=== PATIENT | male | born 1985 | race Caucasian/White ===

== ENCOUNTER 2020-09-26 19:48 | Emergency (ER) | payer OTHER, BC, SELFPAY ==
[2020-09-26] VITALS (9 sets, daily range): BP systolic 158–201; BP diastolic 95–138; PULSE 85–95; RESP 16–18; TEMP 36.3–36.6; O2SAT 95–98; BMI 35.2
--- NOTE | 2020-09-26 20:34 | XR_ITS ---
WS: [id number] XR chest 1V portable [id number] REASON FOR EXAM: epigastric pain FINDINGS: The heart and mediastinum are within normal limits. No active pulmonary parenchymal or pleural disease is seen. The bony thorax is intact. XR/XR chest 1V portable [id number] IMPRESSION: No acute chest abnormality.
--- NOTE | 2020-09-26 20:36 | ECG_ITS ---
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 Measurements Intervals [place] Rate: 94 P: 23 CA: 152 QRS: 15 QRSD: 104 T: 19 QT: 360 QTc: 451 Interpretive Statements SINUS RHYTHM NONSPECIFIC T-WAVE ABNORMALITY No previous ECG available for comparison Electronically Signed On 09-27-2020 16:40:15 DIRECTOR OF REAL ESTATE by Robert Worley M.D. [id number]
[2020-09-26] MEDS: lidocaine 2% viscous 15 ML, aluminum-mag hydrox-simethicon 30 ML, sucralfate oral liq 1 GM PO (20:46)
[2020-09-26] MEDS: enalaprilat 1.25 mg/mL Inj IVP (20:48)
--- NOTE | 2020-09-26 20:52 | CTR_ITS ---
PROCEDURE INFORMATION: Exam: CT Chest With Contrast; Diagnostic Exam date and time: 09/26/2020 8:55 PM Age: 34 years old Clinical indication: Abdominal pain; Sternal or substernal pain; Patient HX: C/O epigastric pain after difficulty swallowing a pill TECHNIQUE: Imaging protocol: Diagnostic computed tomography of the chest with intravenous contrast. Radiation optimization: All CT scans at this facility use at least one of these dose optimization techniques: automated exposure control; mA and/or kV adjustment per patient size (includes targeted exams where dose is matched to clinical indication); or iterative reconstruction. Contrast material: OMNI 300; Contrast volume: 95 ml; Contrast route: INTRAVENOUS (IV); COMPARISON: CR XR chest 1V portable [id number] 09/26/2020 8:44 PM RADIATION DOSE METRICS: Total DLP (mGy-cm): 2623.28 FINDINGS: Lungs: Unremarkable. No consolidation. No masses. There is linear atelectasis. Pleural space: Unremarkable. No pneumothorax. No pleural effusion. Heart: The heart is enlarged. Mediastinal space: The esophagus is unremarkable. Aorta: Unremarkable. No aortic aneurysm. Lymph nodes: Unremarkable. No enlarged lymph nodes. Bones/joints: Unremarkable. No acute fracture. Soft tissues: Unremarkable. Other findings: No foreign body. IMPRESSION: No acute abnormality in the chest. PROCEDURE INFORMATION: Exam: CT Abdomen And Pelvis With Contrast Exam date and time: 09/26/2020 8:55 PM Age: 34 years old Clinical indication: Abdominal pain; Sternal or substernal pain; Patient HX: C/O epigastric pain after difficulty swallowing a pill TECHNIQUE: Imaging protocol: Computed tomography of the abdomen and pelvis with intravenous contrast. Radiation optimization: All CT scans at this facility use at least one of these dose optimization techniques: automated exposure control; mA and/or kV adjustment per patient size (includes targeted exams where dose is matched to clinical indication); or iterative reconstruction. Contrast material: OMNI 300; Contrast volume: 95 ml; Contrast route: INTRAVENOUS (IV); COMPARISON: CR XR chest 1V portable [id number] 09/26/2020 8:44 PM RADIATION DOSE METRICS: Total DLP (mGy-cm): 2623.28 FINDINGS: Liver: There is a diffuse decrease in hepatic parenchymal density, consistent with fatty infiltration. The liver is otherwise intact. Gallbladder and bile ducts: Normal. No calcified stones. No ductal dilation. Pancreas: There is mild peripancreatic inflammatory stranding and fluid, consistent with mild acute pancreatitis. Spleen: Normal. No splenomegaly. Adrenal glands: Normal. No mass. Kidneys and ureters: There is no evidence of hydronephrosis. There is no evidence of renal calcifications. Stomach and bowel: There is no evidence of intestinal perforation or obstruction. There is no evidence of colitis/diverticulitis. No bowel thickening or inflammatory changes. No foreign body.There is moderately excessive colonic stool content. Appendix: A normal appendix is identified. Intraperitoneal space: Unremarkable. No free air. No significant fluid collection. Vasculature: Unremarkable.No abdominal aortic aneurysm. Lymph nodes: Unremarkable.No enlarged lymph nodes. Urinary bladder: There is nonspecific bladder wall thickening. This may be related to incomplete distention. Reproductive: Unremarkable as visualized. Bones/joints: Unremarkable. No acute fracture. Soft tissues: There is a fat-containing umbilical hernia. There is a nonobstructing left inguinal hernia. CT/CT chest abd pel w con* IMPRESSION: There is mild peripancreatic inflammatory stranding and fluid, consistent with mild acute pancreatitis. No pseudocyst. Radiation Dose CTDIVOL = (mGy): DLP = 2623.28~2623.28 (mGy-cm)
[2020-09-26 21:08] LABS: Basophils # 0.1 10^3/uL (0.0-0.1); Basophils % 0.4 %; Eosinophils # 0.1 10^3/uL (0.0-0.8); Eosinophils % 1.2 %; Hematocrit 43.6 % (42.0-52.0); Hemoglobin 15.5 g/dL (11.7-16.6); Lymphocytes # 2.6 10^3/uL (0.8-4.8); Lymphocytes % 21.8 %; Mean Corpuscular HGB Conc 35.6 g/dL (30.0-36.0); Mean Corpuscular Hemoglobin 32.7 pg (28.0-34.0); Mean Platelet Volume 10.9 fL (7.4-10.4); Monocytes # 0.8 10^3/uL (0.2-0.9); Monocytes % 6.4 %; Neutrophils # 8.25 10^3/uL (1.8-7.7); Neutrophils % 69.8 %; Nucleated Red Blood Cells % 0 %; Platelet Count 224 10^3/cmm (130-400); Red Blood Count 4.74 10^6/uL (4.1-5.3); Red Cell Distribution Width 12.3 % (12.1-15.1); White Blood Count 11.8 10^3/uL (4.0-10.0)
--- NOTE | 2020-09-26 21:10 | ED_ITS ---
HPI - Abdominal Pain General: Chief Complaint: Abdominal Pain Stated Complaint: epigastaric pain Time Seen by Provider: 09/26/20 20:10 History of Present Illness: HPI narrative: 34-year-old male presents with epigastric discomfort. He describes drinking a powder mix based drinks this morning, and immediately feeling like it did not go down right. He says that he had to force it down. Since that time he has epigastric discomfort and some discomfort in his mid back. He has not thrown up. No fever. No shortness of breath. No real cough. He is not had this problem before. He had used Tums and Mylanta with no relief. MD elicited complaint: abdominal pain Pertinent past history: none Onset (ago): hour(s) Pain Consistency: constant Location: Epigastric Severity: moderate Quality: aching Radiation: back Migration to: no migration Exacerbating factors: other (Deep breath) Relieving factors: nothing Associated Symptoms: Denies belching, bloating, change in bowel habits, change in stool character, chills, diarrhea, dyspepsia, dysuria, fever(s), hematemesis and vomiting Review of Systems Const: Denies: fever(s), chills or body aches Card: Denies: chest pain, palpitations or irregular heart rhythm Resp: Denies: dyspnea, productive cough, non-productive cough or wheezing GI: Denies: vomiting, hematemesis, diarrhea, bloating, belching, change in bowel habits or change in stool character : Denies: dysuria Physical Exam Const: GENERAL APPEARANCE: well developed ORIENTATION/CONSCIOUSNESS: Yes oriented to person, Yes oriented to place and Yes oriented to time HENMT: COMMON NORMALS: normocephalic, external ears normal and Normal external nose present HEAD & SCALP: normocephalic FACE & SINUS: normal facial exam NOSE: Normal external nose present and No nasal discharge present EXTERNAL EAR: Yes external ears normal Eye: COMMON NORMALS: Equal, round and reactive pupils present, EOMs intact bilaterally and conjunctivae normal EYELID: eyelids normal CONJUNCTIVA: Yes conjunctivae normal PUPIL: Yes Equal, round and reactive pupils present Neck/C-Spine: GENERAL: No tracheal deviation Chest: COMMONS NORMALS: normal inspection of the chest CHEST: No tenderness Resp: COMMON NORMALS: clear to auscultation bilaterally EFFORT & INSPECTION: No tachypneic, No respiratory distress, No retractions, No uses accessory muscles and No tracheal deviation AUSCULTATION: clear to auscultation bilaterally, no rhonchi, no wheezes and lung sounds not diminished Cardio: COMMON NORMALS: regular rate and regular rhythm RATE: regular rate RHYTHM: regular rhythm HEART SOUNDS: no murmurs PERIPHERAL PULSES: radial pulses present GI: INSPECTION: No abdominal distension AUSCULTATION: No Hyperactive bowel sounds present and No Hypoactive bowel sounds present PALPATION: Yes Tenderness to palpation present (GI) Details: RUQ, No Guarding due to palpation present (GI), No Rigid due to palpation and Yes Rebound tenderness present (+ bed shake) PERCUSSION: no dullness to percussion and no tympanic to percussion Neuro: SENSORIUM/ORIENTATION: Yes oriented to person, Yes oriented to place and Yes oriented to time Psych: COMMON NORMALS: mental status grossly normal Skin: COMMON NORMALS: no rashes or lesions noted GENERAL SKIN EXAM: no rashes or lesions noted Course Vital Signs: Vital signs: Vital Signs Temperature 97.9 F 09/26/20 23:26 Pulse Rate 95 09/26/20 23:26 Respiratory Rate 17 09/26/20 23:26 Blood Pressure 166/110 09/26/20 23:26 Pulse Oximetry 95 09/26/20 23:26 MDM - Abdominal Pain MDM Narrative: Medical decision making narrative: 34-year-old male with epigastric pain. GI cocktail very mildly and very transiently helped his symptoms. Pain improved now after IV Dilaudid. His white blood cell count is 11.8. Liver enzymes are normal. He has been quite hypertensive. His creatinine is 0.7. CT shows peripancreatic inflammation with no pseudocyst or abscess. The gallbladder is normal. Pancreatitis likely the source of his pain. Unknown cause, although he has increased his creatine intake over the last 2 to 3 weeks. I believe this is been known as a potential cause. He was given the option of admission. He would like to go home on oral liquids, [id number] pain medication, and stopping his supplements. He knows to return for worsening symptoms. Lab Data: Labs: Lab Results 09/26/20 09/26/20 09/26/20 Range/Units 20:51 20:51 20:51 WBC 11.8 H (4.0-10.0) 10^3/ uL RBC 4.74 (4.1-5.3) 10^6/u L Hgb 15.5 (11.7-16.6) g/dL Hct 43.6 (42.0-52.0) % MCV 92.0 (80-94) fL MCH 32.7 (28.0-34.0) pg MCHC 35.6 (30.0-36.0) g/dL RDW 12.3 (12.1-15.1) % Plt Count 224 (130-400) 10^3/c mm MPV 10.9 H (7.4-10.4) fL Neut % (Auto) 69.8 % Lymph % (Auto) 21.8 % Arthur % (Auto) 6.4 % Eos % (Auto) 1.2 % Baso % (Auto) 0.4 % Neut # (Auto) 8.25 H (1.8-7.7) 10^3/u L Lymph # (Auto) 2.6 (0.8-4.8) 10^3/u L Arthur # (Auto) 0.8 (0.2-0.9) 10^3/u L Eos # (Auto) 0.1 (0.0-0.8) 10^3/u L Baso # (Auto) 0.1 (0.0-0.1) 10^3/u L Nucleated RBC % (a uto) 0 % Nucleated RBCs # 0.0 /100WBC Sodium 134 L (136-145) mmol/L Potassium 3.8 (3.5-5.1) mmol/L Chloride 98 (98-107) mmol/L Carbon Dioxide 25 (22-29) mmol/L Anion Gap 14.8 (5-19) BUN 10 (6-20) mg/dL Creatinine 0.7 (0.7-1.2) mg/dL GFR Calculation 129.1 (90-130) mL/min Glucose 122 H (65-115) mg/dL Calculated Osmolal ity 278 L (285-295) mOsm/k g Calcium 9.0 (8.5-10.5) mg/dL Magnesium 2.2 (1.7-2.3) mg/dL Total Bilirubin 0.2 (0.15-1.2) mg/dL AST (0-40) U/L ALT < 5 (0-41) U/L Alkaline Phosphata se 75 (40-130) IU/L Troponin T Baselin e 11 (0-15) ng/L C-Reactive Protein 13.2 H (0.0-4.9) mg/L Total Protein 6.4 L (6.6-8.7) g/dL Albumin 4.5 (3.5-5.2) g/dL Globulin 1.9 (1.3-4.6) g/dL Lipase 88 H (13-60) U/L Urine Color (Yellow) Urine Appearance (CLEAR) Urine pH (5-7) Ur Specific Gravit y (1.005-1.030) Urine Protein (Negative) Urine Glucose (UA) (Normal) Urine Ketones (Negative) Urine Blood (Negative) Urine Nitrate (Negative) Urine Bilirubin (Negative) Prot Sulfosalicyli c Acd (Negative) Urine Urobilinogen (Negative) mg/dL Ur Leukocyte Laura ase (Negative) 09/26/20 Range/Units 20:51 WBC (4.0-10.0) 10^3/ uL RBC (4.1-5.3) 10^6/u L Hgb (11.7-16.6) g/dL Hct (42.0-52.0) % MCV (80-94) fL MCH (28.0-34.0) pg MCHC (30.0-36.0) g/dL RDW (12.1-15.1) % Plt Count (130-400) 10^3/c mm MPV (7.4-10.4) fL Neut % (Auto) % Lymph % (Auto) % Arthur % (Auto) % Eos % (Auto) % Baso % (Auto) % Neut # (Auto) (1.8-7.7) 10^3/u L Lymph # (Auto) (0.8-4.8) 10^3/u L Arthur # (Auto) (0.2-0.9) 10^3/u L Eos # (Auto) (0.0-0.8) 10^3/u L Baso # (Auto) (0.0-0.1) 10^3/u L Nucleated RBC % (a uto) % Nucleated RBCs # /100WBC Sodium (136-145) mmol/L Potassium (3.5-5.1) mmol/L Chloride (98-107) mmol/L Carbon Dioxide (22-29) mmol/L Anion Gap (5-19) BUN (6-20) mg/dL Creatinine (0.7-1.2) mg/dL GFR Calculation (90-130) mL/min Glucose (65-115) mg/dL Calculated Osmolal ity (285-295) mOsm/k g Calcium (8.5-10.5) mg/dL Magnesium (1.7-2.3) mg/dL Total Bilirubin (0.15-1.2) mg/dL AST (0-40) U/L ALT (0-41) U/L Alkaline Phosphata se (40-130) IU/L Troponin T Baselin e (0-15) ng/L C-Reactive Protein (0.0-4.9) mg/L Total Protein (6.6-8.7) g/dL Albumin (3.5-5.2) g/dL Globulin (1.3-4.6) g/dL Lipase (13-60) U/L Urine Color Yellow (Yellow) Urine Appearance Clear (CLEAR) Urine pH 8.0 H (5-7) Ur Specific Gravit y 1.010 (1.005-1.030) Urine Protein Neg (Negative) Urine Glucose (UA) Norm (Normal) Urine Ketones Negative (Negative) Urine Blood Neg (Negative) Urine Nitrate Negative (Negative) Urine Bilirubin Neg (Negative) Prot Sulfosalicyli c Acd Negative (Negative) Urine Urobilinogen Norm (Negative) mg/dL Ur Leukocyte Laura ase Negative (Negative) Discharge Plan Discharge Patient Disposition: Home Clinical Impression: Pancreatitis Qualifiers: Chronicity: acute Pancreatitis type: idiopathic Acute pancreatitis complication: no infection or necrosis Qualified Code(s): K85.00 - Idiopathic acute pancreatitis without necrosis or infection Hypertension Qualifiers: Hypertension type: essential hypertension Qualified Code(s): I10 - Essential (primary) hypertension Condition: Stable Prescriptions: New lisinopril 20 mg tablet 20 mg PO DAILY Qty: 30 RF: 0 Zofran 4 mg tablet 4 mg PO Q6H PRN (Reason: nausea and vomiting) Qty: 10 RF: 0 Discharge Orders: Discharge Order (Routine); Ordered 09/26/20 Ordered By: Iraj Jolley Discharge Diet: Advance as tolerated and Clear Liquid Discharge Activity: Increase activity as tolerated Patient Instructions: Pancreatitis (ED), Hypertension (ED) Activity Restrictions/Additional Instructions: Consider stopping your supplements for the time being. Medications as directed. Follow a liquid diet for at least 48 hours, or until symptoms of epigastric pain resolve. Return for fever greater than 100, vomiting liquids or medications, worsening pain despite treatment, development of chest pain or shortness of breath, other concerning symptoms. Coding Level of Care Code ED Trimming Press Operator for Chg Fwd Exam Comprehensive
[2020-09-26] MEDS: iohexol 300 mg/mL 100 mL Btl IV (21:11)
[2020-09-26 21:16] LABS: Add Urine Microscopic? NO
[2020-09-26 21:20] LABS: Albumin Level 4.5 g/dL (3.5-5.2); Alkaline Phosphatase 75 IU/L (40-130); Blood Urea Nitrogen 10 mg/dL (6-20); C Reactive Protein 13.2 mg/L (0.0-4.9); Carbon Dioxide 25 mmol/L (22-29); Chloride 98 mmol/L (98-107); Globulin 1.9 g/dL (1.3-4.6); Glomerular Filtration Rate 129.1 mL/min (90-130); Glucose 122 mg/dL (65-115); Lipase 88 U/L (13-60); Magnesium 2.2 mg/dL (1.7-2.3); Osmolality Calculated 278 mOsm/kg (285-295); Sodium 134 mmol/L (136-145); Total Bilirubin 0.2 mg/dL (0.15-1.2); Total Protein 6.4 g/dL (6.6-8.7)
[2020-09-26 21:24] LABS: Troponin(5th) Baseline 11 ng/L (0-15)
[2020-09-26 21:25] LABS: Anion Gap 14.8 (5-19); Potassium 3.8 mmol/L (3.5-5.1)
[2020-09-26 21:36] LABS: Alanine Aminotransferase < 5 U/L (0-41)
[2020-09-26 21:46] LABS: Bilirubin Urine Neg (Negative); Blood Urine Neg (Negative); Glucose Urine UA Norm (Normal); Ketones Urine Negative (Negative); Leukocyte Esterase Urine Negative (Negative); Nitrate Urine Negative (Negative); Protein Urine Neg (Negative); Sulfosalicylic Acid Urine Negative (Negative); Urine Appearance Clear (CLEAR); Urine Color Yellow (Yellow); Urobilinogen Urine Norm (Negative)
[2020-09-26] MEDS: ondansetron 2 mg/ML SDV 2 mL 4 MG IVP (22:29)
[2020-09-26] MEDS: HYDROmorphone 1 mg/mL INJ 1 mL IVP (22:33)
--- NOTE | 2020-09-26 22:44 | PC.NURSE ---
Physician cancelled rest of troponin series and EKGs
[2020-09-26] MEDS: amlodipine 10 mg Tablet PO (23:11)
== END 2020-09-26 23:26 | disposition home or self-care (01) ==
PROVIDERS: Emergency Provider Emergency Medicine
DX: K85.00 Idiopathic acute pancreatitis without necrosis or infection (principal); I10 Essential (primary) hypertension
CPT/HCPCS: 12345; 71045; 71260; 74177; 80053; 81003; 83690; 83735; 84484; 85025; 86140; 93005; 96374; 96375; 99283; 99284; J1170; J2405; J3490; Q9967

== ENCOUNTER 2020-10-18 00:37 | Inpatient (IN) | payer OTHER, BC, SELFPAY ==
[2020-10-18] VITALS (243 sets, daily range): BP systolic 100–174; BP diastolic 64–113; PULSE 87–117; RESP 12–36; TEMP 36.4–37.8; O2SAT 88–97; BMI 35.2
--- NOTE | 2020-10-18 01:03 | CTR_ITS ---
PROCEDURE INFORMATION: Exam: CT Abdomen And Pelvis With Contrast Exam date and time: 10/18/2020 1:12 AM Age: 34 years old Clinical indication: Nausea; Abdominal pain; Generalized; Additional info: Abd pain HX pancreatitis TECHNIQUE: Imaging protocol: Computed tomography of the abdomen and pelvis with intravenous contrast. Radiation optimization: All CT scans at this facility use at least one of these dose optimization techniques: automated exposure control; mA and/or kV adjustment per patient size (includes targeted exams where dose is matched to clinical indication); or iterative reconstruction. Contrast material: OMNI 300; Contrast volume: 95 ml; Contrast route: INTRAVENOUS (IV); COMPARISON: CT chest abd pel w con* 09/26/2020 8:59 PM RADIATION DOSE METRICS: Total DLP (mGy-cm): 1708.02 FINDINGS: Lungs: Suspect mild atelectasis in the lower lungs bilaterally, greater on the left. Pneumonitis not excluded. Please correlate clinically. No pleural fluid. Liver: There is fatty infiltration of the liver. Gallbladder and bile ducts: No visible gallstones or other definite gallbladder abnormality by CT. Ultrasound would be more sensitive for detecting gallstones, if clinically needed. Mild extra hepatic biliary tree dilation, with common duct measuring about 7 mm. No intrahepatic biliary dilation. No definite/visible common duct stone by CT. Significance uncertain, as the appearance is similar to the prior exam. Correlation with laboratory/bilirubin levels may be helpful to determine if there is any significant biliary obstruction. Pancreas: Moderate inflammatory changes around the pancreas, compatible with acute pancreatitis. Please correlate with clinical and laboratory evaluation. Small amount of peripancreatic and retroperitoneal fluid, mainly on the left. No definite pseudocyst. These inflammatory changes are more prominent than on the prior exam. No pancreatic duct dilation. The pancreas appears to enhance homogeneously. Spleen: Unremarkable. Adrenal glands: Unremarkable. Kidneys and ureters: No hydronephrosis of either kidney. No visible ureteral calculus. No perinephric fluid. The kidneys enhance homogeneously. Stomach and bowel: Possibility of slightly thickened mucosa/wall in the distal antrum of the stomach. This is a nonspecific appearance, could be transient on CT, and might be related to the adjacent pancreatic inflammation. This could also represent evidence for gastritis or peptic ulcer disease. Please correlate clinically. There are no CT findings to strongly suggest diverticulitis. Appendix: The appendix is visualized and appears normal. Intraperitoneal space: No free air, ascites, or bowel distention. Vasculature: No evidence for abdominal aortic aneurysm. Lymph nodes: No retroperitoneal adenopathy. Urinary bladder: There appears to be moderate diffuse urinary bladder wall thickening. While nonspecific, this could indicate evidence for cystitis. Please correlate clinically. Reproductive: Essentially unremarkable for age. Bones/joints: No significant acute finding. Soft tissues: Small left inguinal hernia, containing only fat, not significantly changed. CT/CT abdomen pelvis w con* [id number] IMPRESSION: 1. Findings compatible with acute pancreatitis, see above details. 2. Mild extrahepatic biliary tree dilation, no visible gallstones by CT, see above. 3. Possible thickened mucosa/wall in the distal stomach, see above discussion. 4. No free air or bowel distention. 5. Suspected urinary bladder wall thickening, possibly secondary to cystitis. 6. No hydronephrosis of either kidney. No visible ureteral calculus. No perinephric fluid. 7. Suspect mild atelectasis in the lower lungs bilaterally, greater on the left. Pneumonitis not excluded. 8. Other findings discussed above. Radiation Dose CTDIVOL = (mGy): DLP = 1708.02 (mGy-cm)
[2020-10-18] MEDS: lidocaine 2% viscous 15 ML, aluminum-mag hydrox-simethicon 30 ML, sucralfate oral liq 1 GM PO (01:06)
[2020-10-18] MEDS: sodium chloride 0.9% 1,000 ML 999 ML IV (01:06)
--- NOTE | 2020-10-18 01:07 | US_ITS ---
WS: [id number] ULTRASOUND ABDOMEN LIMITED CLINICAL INFORMATION: epigastric pain hx pancreatitis COMPARISON: None. FINDINGS: Liver Size: Enlarged Craniocaudal length: 18.8 cm. Echogenicity: Coarse with fatty infiltration Surface nodularity: None. Mass (size and location): None. Bile ducts Intrahepatic ducts: Normal. Common bile duct diameter: 0.8 cm. Gallbladder Polyps or sludge balls in the neck and fundus of the gallbladder Gallbladder wall thickening: None. Pericholecystic fluid: None. Sonographic Busch sign: Absent. Pancreas Normal as visualized. Right kidney: Normal. Hydronephrosis: None. Size: 12.3 cm x 6.4 cm x 6.1 cm. Abdominal aorta and IVC Visualized portions are normal. Ascites: None. US/US gall bladder [id number] IMPRESSION: 1. Mild hepatomegaly with diffuse infiltration. 2. Dilated common bile duct measuring 8.3 mm with polyps or sludge balls in th e neck and fundus of the gallbladder. No gallbladder wall thickening. 3. Gallbladder function can be further evaluated with HIDA scan.
[2020-10-18] MEDS: ondansetron 2 mg/ML SDV 2 mL 4 MG IVP (01:09)
[2020-10-18] MEDS: HYDROmorphone 1 mg/mL INJ 1 mL IVP ×2 (01:09→02:14)
[2020-10-18 01:10] LABS: Basophils # 0.1 10^3/uL (0.0-0.1); Basophils % 0.5 %; Eosinophils # 0.2 10^3/uL (0.0-0.8); Hematocrit 43.7 % (42.0-52.0); Hemoglobin 14.8 g/dL (11.7-16.6); Lymphocytes # 2.4 10^3/uL (0.8-4.8); Lymphocytes % 10.6 %; Mean Corpuscular HGB Conc 33.9 g/dL (30.0-36.0); Mean Corpuscular Hemoglobin 31.2 pg (28.0-34.0); Mean Platelet Volume 11.2 fL (7.4-10.4); Monocytes # 1.7 10^3/uL (0.2-0.9); Monocytes % 7.4 %; Neutrophils # 17.98 10^3/uL (1.8-7.7); Neutrophils % 80.1 %; Nucleated Red Blood Cells % 0 %; Platelet Count 225 10^3/cmm (130-400); Red Blood Count 4.75 10^6/uL (4.1-5.3); Red Cell Distribution Width 12.6 % (12.1-15.1); White Blood Count 22.5 10^3/uL (4.0-10.0)
[2020-10-18 01:17] LABS: INR 0.96 (0.8-1.2)
[2020-10-18 01:27] LABS: Alanine Aminotransferase 50 U/L (0-41); Albumin Level 4.1 g/dL (3.5-5.2); Alkaline Phosphatase 74 IU/L (40-130); Anion Gap 14.6 (5-19); Aspartate Amino Transferase 54 U/L (0-40); Blood Urea Nitrogen 8 mg/dL (6-20); C Reactive Protein 46.4 mg/L (0.0-4.9); Calcium 9.2 mg/dL (8.5-10.5); Carbon Dioxide 25 mmol/L (22-29); Chloride 100 mmol/L (98-107); Globulin 2.8 g/dL (1.3-4.6); Glomerular Filtration Rate 96.6 mL/min (90-130); Glucose 142 mg/dL (65-115); Osmolality Calculated 283 mOsm/kg (285-295); Potassium 3.6 mmol/L (3.5-5.1); Sodium 136 mmol/L (136-145); Total Bilirubin 0.7 mg/dL (0.15-1.2); Total Protein 6.9 g/dL (6.6-8.7)
[2020-10-18 01:28] LABS: Lactate (Lactic Acid level) 1.5 mmol/L (0.5-2.2)
[2020-10-18] MEDS: iohexol 300 mg/mL 100 mL Btl IV (01:38)
[2020-10-18 01:46] LABS: Add Urine Microscopic? NO
[2020-10-18 01:54] LABS: Bilirubin Urine Neg (Negative); Blood Urine Neg (Negative); Glucose Urine UA Norm (Normal); Ketones Urine Negative (Negative); Leukocyte Esterase Urine Negative (Negative); Nitrate Urine Negative (Negative); Protein Urine Neg (Negative); Urine Appearance Clear (CLEAR); Urine Color Yellow (Yellow); Urobilinogen Urine Norm (Negative); pH Urine 5 (5-7)
[2020-10-18] MEDS: ketorolac 30 mg/mL INJ IVP (02:18)
--- NOTE | 2020-10-18 03:04 | P.HP_ITS ---
Providers/Chief Complaint Chief Complaint: suspects pancreatitis History of Present Illness Fito Gardner is a 34 year old male who does not have significant past medical history came in with chief complaint of abdominal pain. Patient had an episode of pancreatitis 3 weeks ago for which she was seen in the ER and was discharged home, he presented today with worsening abdominal pain. Patient is stating that he is drinking alcohol in large quantity, he drinks beer, was not able to gabriele ntify but stated more than he is supposed to and admits that it is a problem for him, he denies waking up drowsy, sustaining any falls but he has some guilt about it. 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 At home he has not noticed any fever, nausea, vomiting his last bowel movement was today which was he did not notice any diarrhea. He is not on any medications other than lisinopril for his blood pressure. No family history of GI cancers. Admits to smoking 5 to 7 cigarettes a day. Diagnosis in the ER revealed normal hemodynamics, leukocytosis without signs of sepsis, normal BMP, lipase 7000, CT abdomen revealed pancreatitis without any necrotic changes, I have requested drug screen, alcohol level, triglyceride level, abdominal pain 12/15 at the time my evaluation he was comfortable in his bed and was contemplating whether to stay or go home. Review of Systems Const: Denies: fever(s), chills or body aches Eyes: Denies: change in vision ENMT: Denies: throat pain Card: Denies: chest pain Resp: Denies: dyspnea GI: Reports: abdominal pain; Denies: nausea, vomiting, diarrhea or constipation : Denies: flank pain Musc: Denies: neck pain Skin/Breast: Denies: lesions Neuro: Denies: headache(s) Psych: Denies: anxiety or depression Endo: Denies: polyuria Samm/Lymph: Denies: easy bruising All/Imm: Denies: urticaria Medications/Allergies Home Medications Medication Instructions Recorded Confirmed Last Taken Type lisinopril 20 mg PO DAILY #30 tab 09/26/20 Unknown Rx ondansetron HCl [Zofran] 4 mg PO Q6H PRN #10 tab 09/26/20 Unknown Rx Allergies Allergy/AdvReac Type Severity Reaction Status Date / Time No Known Allergies Allergy Verified 09/26/20 20:39 PFSH Acute PFSH: Medical History (Updated 10/18/20 @ 04:00 by Candelario Jeffries MD) Alcohol abuse Nicotine dependence Pancreatitis Surgical History (Updated 10/18/20 @ 04:00 by Candelario Jeffries MD) No pertinent past surgical history Family History (Updated 10/18/20 @ 04:00 by Candelario Jefrfies MD) Denies family history of CAD (coronary artery disease) Bleeding disorder Cancer Social History (Updated 10/18/20 @ 04:01 by Candelario Jeffries MD) Smoking and tobacco status: current every day smoker cigarettes [ Other cigarette details: Smokes 5-7 cigarettes per day ] Alcohol intake: current Alcohol type: beer Alcohol use comment: More than 4 drinks a day Substance/Drug Use: never Household members: spouse Housing: House Marital status: Current occupational status: employed Vitals/I&O/Wt Last Vital Signs Temp 98.1 F 10/18/20 00:42 Pulse 98 10/18/20 02:20 Resp 17 10/18/20 02:20 BP 137/89 10/18/20 02:20 Pulse Ox 93 10/18/20 02:20 10/17/20 10/17/20 10/18/20 14:59 22:59 06:59 Intake Total 1000 / 1000 Balance 1000 / 1000 Weight last 48 hrs Weight 111.13 kg Physical Exam Narrative: EXAM NARRATIVE: Young male sitting comfortably in his bed Appears well-hydrated no active distress Saturating well on room air S1-S2 no tachycardia heart. Abdomen soft distended bowel sound present mild tenderness midepigastric region and left upper quadrant No signs of peritonitis No signs of retroperitoneal hemorrhage Lower extremity no edema gangrene ulcer Multiple skin tattoos noted Appropriate mood and affect GCS 15 no neurological deficit EOMI, PERRLA Data : 10/18/20 00:55 10/18/20 00:55 A&P Assessment and plan (1) Pancreatitis: Recurrent pancreatitis secondary to alcohol abuse and active smoking Patient admits to drinking a lot of alcohol He admits that drinking is getting problematic for him and is willing to bring changes in his life, he seems concerned about his family and job Denying nausea, vomiting and willing to try clear liquid trial He has received Zosyn in the ER but I do not see any evidence of necrotic pancreas on CT abdomen I would hold off for now D5 half-normal saline fluid resuscitation Trend lipase level, we do have etiology for his recurrent pancreatitis I do not think MRCP is needed at this point, hold lisinopril Status: Acute Additional A&P Information Alcohol abuse: Add thiamine and folic acid Check alcohol level Would benefit from alcohol Anonymous program Nicotine dependence: Smoking 5 to 7 cigarettes a day, counseled on smoking c essation Full code Clear liquid diet DVT prophylaxis not needed as he is low risk Attestations Medical Necessity Statement*: Anticipating discharge in less than 48 hours continued overnight monitoring for worsening of his symptoms for pancreatitis secondary to alcohol abuse Time Spent in Patient Care: (>than 50% of time spent in counselling and/or direct pt care on unit) . 50mins Coding Level of Care Code Acute It Desktop Support Technician for Min [place] Diagnoses Pancreatitis K85.90
--- NOTE | 2020-10-18 03:17 | W.ED.ABDPA2 ---
HPI - Abdominal Pain General: Chief Complaint: Abdominal Pain Stated Complaint: suspects pancreatitis Time Seen by Provider: 10/18/20 01:00 History of Present Illness: HPI narrative: 34-year-old male. He was seen about 3 weeks ago for pancreatitis. His pancreatitis was mild at that point, with a lipase of 88, normal liver enzymes, and a CT showing only mild pancreatic inflammation. He was allowed home, and did well on a liquid diet and was symptom-free by 2 to 3 days following. He notes that yesterday he began to have symptoms again. They were much worse at this point. He had epigastric pain, nausea. When the pain became worse he came to the emergency department MD elicited complaint: abdominal pain Pertinent past history: other Onset (ago): hour(s) Pain Consistency: constant Location: Epigastric and LUQ Severity: severe Quality: stabbing Radiation: none Migration to: no migration Relieving factors: nothing Associated Symptoms: Reports dyspepsia and nausea; Denies coffee ground emesis, constipation, diarrhea, dysuria and fever(s) Review of Systems Const: Denies: fever(s) Eyes: Denies: change in vision ENMT: Denies: odynophagia, post nasal drip or sinus pain Card: Denies: chest pain, palpitations, irregular heart rhythm, edema, swelling of feet/ankles, dyspnea on exertion or orthopnea Resp: Denies: dyspnea, productive cough, non-productive cough or wheezing GI: Reports: nausea; Denies: coffee ground emesis, diarrhea or constipation : Denies: dysuria Musc: Reports: back pain; Denies: neck pain Skin/Breast: Denies: rash or erythema Neuro: Denies: headache(s), dizziness or vertigo Psych: Denies: anxiety PFSH ED PFSH: Medical History (Updated 10/18/20 @ 04:12 by Iraj Jolley DO) Alcohol abuse Nicotine dependence Pancreatitis Surgical History (Updated 10/18/20 @ 04:00 by Candelario Jeffries MD) No pertinent past surgical history Family History (Updated 10/18/20 @ 04:00 by Candleario Jeffries MD) Denies family history of CAD (coronary artery disease) Bleeding disorder Cancer Social History (Updated 10/18/20 @ 04:01 by Candelario Jeffries MD) Smoking and tobacco status: current every day smoker cigarettes [ Other cigarette details: Smokes 5-7 cigarettes per day ] Alcohol intake: current Alcohol type: beer Alcohol use comment: More than 4 drinks a day Substance/Drug Use: never Household members: spouse Housing: House Marital status: Current occupational status: employed Physical Exam Const: GENERAL APPEARANCE: in distress and ill appearing ORIENTATION/CONSCIOUSNESS: Yes oriented to person, Yes oriented to place and Yes oriented to time HENMT: COMMON NORMALS: normocephalic, external ears normal and Normal external nose present HEAD & SCALP: normocephalic FACE & SINUS: normal facial exam NOSE: Normal external nose present and No nasal discharge present EXTERNAL EAR: Yes external ears normal Eye: COMMON NORMALS: Equal, round and reactive pupils present, EOMs intact bilaterally and conjunctivae normal EYELID: eyelids normal CONJUNCTIVA: Yes conjunctivae normal PUPIL: Yes Equal, round and reactive pupils present Neck/C-Spine: GENERAL: No tracheal deviation Chest: COMMONS NORMALS: normal inspection of the chest CHEST: No tenderness Resp: COMMON NORMALS: clear to auscultation bilaterally EFFORT & INSPECTION: No tachypneic, No respiratory distress, No retractions, No uses accessory muscles and No tracheal deviation AUSCULTATION: clear to auscultation bilaterally, no rhonchi, no wheezes and lung sounds not diminished Cardio: COMMON NORMALS: regular rate and regular rhythm RATE: regular rate RHYTHM: regular rhythm HEART SOUNDS: no murmurs PERIPHERAL PULSES: radial pulses present GI: INSPECTION: No abdominal distension AUSCULTATION: No Hyperactive bowel sounds present and No Hypoactive bowel sounds present PALPATION: Yes Tenderness to palpation present (GI) (epigastric) Details: LUQ, Yes Guarding due to palpation present (GI) and No Rigid due to palpation PERCUSSION: no dullness to percussion and no tympanic to percussion Neuro: SENSORIUM/ORIENTATION: Yes oriented to person, Yes oriented to place and Yes oriented to time Psych: COMMON NORMALS: mental status grossly normal Skin: COMMON NORMALS: no rashes or lesions noted GENERAL SKIN EXAM: no rashes or lesions noted Course Consultations: Consultation #1: nunu Vital Signs: Vital signs: Vital Signs Temperature 98.1 F 10/18/20 00:42 Pulse Rate 106 H 10/18/20 04:04 Respiratory Rate 17 10/18/20 04:04 Blood Pressure 140/79 10/18/20 04:04 Pulse Oximetry 94 10/18/20 04:04 MDM - Abdominal Pain MDM Narrative: Medical decision making narrative: 34-year-old male with epigastric pain. White blood cell count 22.5. Lipase is 7000. His bilirubin is normal. He does admit to drinking alcohol. Gallbladder ultrasound reveals possible sludge, no stones, and borderline bile ducts. CT reveals significant Pancreatic inflammation without cyst or abscess formation. Also reveals borderline bile ducts. INR is 0.96. Discussed admission for antibiotics, fluids, and possible further imaging. Patient was initially adamant about going home, but then conceded. Discussed with hospitalist who agrees to admit the patient. Lab Data: Labs: Lab Results 10/18/20 10/18/20 10/18/20 Range/Units 00:55 00:55 00:55 WBC 22.5 H (4.0-10.0) 10^3/ uL RBC 4.75 (4.1-5.3) 10^6/u L Hgb 14.8 (11.7-16.6) g/dL Hct 43.7 (42.0-52.0) % MCV 92.0 (80-94) fL MCH 31.2 (28.0-34.0) pg MCHC 33.9 (30.0-36.0) g/dL RDW 12.6 (12.1-15.1) % Plt Count 225 (130-400) 10^3/c mm MPV 11.2 H (7.4-10.4) fL Neut % (Auto) 80.1 % Lymph % (Auto) 10.6 % [place] % (Auto) 7.4 % Eos % (Auto) 1.0 % Baso % (Auto) 0.5 % Neut # (Auto) 17.98 H (1.8-7.7) 10^3/u L Lymph # (Auto) 2.4 (0.8-4.8) 10^3/u L [place] # (Auto) 1.7 H (0.2-0.9) 10^3/u L Eos # (Auto) 0.2 (0.0-0.8) 10^3/u L Baso # (Auto) 0.1 (0.0-0.1) 10^3/u L Nucleated RBC % (a uto) 0 % Nucleated RBCs # 0.0 /100WBC PT 13.00 (12.1-14.9) SECO NDS INR 0.96 (0.8-1.2) Sodium 136 (136-145) mmol/L Potassium 3.6 (3.5-5.1) mmol/L Chloride 100 (98-107) mmol/L Carbon Dioxide 25 (22-29) mmol/L Anion Gap 14.6 (5-19) BUN 8 (6-20) mg/dL Creatinine 0.9 (0.7-1.2) mg/dL GFR Calculation 96.6 (90-130) mL/min Glucose 142 H (65-115) mg/dL Calculated Osmolal ity 283 L (285-295) mOsm/k g Lactate (0.5-2.2) mmol/L Calcium 9.2 (8.5-10.5) mg/dL Total Bilirubin 0.7 (0.15-1.2) mg/dL AST 54 H (0-40) U/L ALT 50 H (0-41) U/L Alkaline Phosphata se 74 (40-130) IU/L C-Reactive Protein 46.4 H (0.0-4.9) mg/L Total Protein 6.9 (6.6-8.7) g/dL Albumin 4.1 (3.5-5.2) g/dL Globulin 2.8 (1.3-4.6) g/dL Triglycerides (0-150) mg/dL Lipase 7147 H (13-60) U/L Urine Color (Yellow) Urine Appearance (CLEAR) Urine pH (5-7) Ur Specific Gravit y (1.005-1.030) Urine Protein (Negative) Urine Glucose (UA) (Normal) Urine Ketones (Negative) Urine Blood (Negative) Urine Nitrate (Negative) Urine Bilirubin (Negative) Urine Urobilinogen (Negative) mg/dL Ur Leukocyte Laura ase (Negative) Ethyl Alcohol (0-10) mg/dL 10/18/20 10/18/20 10/18/20 Range/Units 00:55 00:55 00:55 WBC (4.0-10.0) 10^3/ uL RBC (4.1-5.3) 10^6/u L Hgb (11.7-16.6) g/dL Hct (42.0-52.0) % MCV (80-94) fL MCH (28.0-34.0) pg MCHC (30.0-36.0) g/dL RDW (12.1-15.1) % Plt Count (130-400) 10^3/c mm MPV (7.4-10.4) fL Neut % (Auto) % Lymph % (Auto) % [place] % (Auto) % Eos % (Auto) % Baso % (Auto) % Neut # (Auto) (1.8-7.7) 10^3/u L Lymph # (Auto) (0.8-4.8) 10^3/u L [place] # (Auto) (0.2-0.9) 10^3/u L Eos # (Auto) (0.0-0.8) 10^3/u L Baso # (Auto) (0.0-0.1) 10^3/u L Nucleated RBC % (a uto) % Nucleated RBCs # /100WBC PT (12.1-14.9) SECO NDS INR (0.8-1.2) Sodium (136-145) mmol/L Potassium (3.5-5.1) mmol/L Chloride (98-107) mmol/L Carbon Dioxide (22-29) mmol/L Anion Gap (5-19) BUN (6-20) mg/dL Creatinine (0.7-1.2) mg/dL GFR Calculation (90-130) mL/min Glucose (65-115) mg/dL Calculated Osmolal ity (285-295) mOsm/k g Lactate 1.5 (0.5-2.2) mmol/L Calcium (8.5-10.5) mg/dL Total Bilirubin (0.15-1.2) mg/dL AST (0-40) U/L ALT (0-41) U/L Alkaline Phosphata se (40-130) IU/L C-Reactive Protein (0.0-4.9) mg/L Total Protein (6.6-8.7) g/dL Albumin (3.5-5.2) g/dL Globulin (1.3-4.6) g/dL Triglycerides 1331 H (0-150) mg/dL Lipase (13-60) U/L Urine Color (Yellow) Urine Appearance (CLEAR) Urine pH (5-7) Ur Specific Gravit y (1.005-1.030) Urine Protein (Negative) Urine Glucose (UA) (Normal) Urine Ketones (Negative) Urine Blood (Negative) Urine Nitrate (Negative) Urine Bilirubin (Negative) Urine Urobilinogen (Negative) mg/dL Ur Leukocyte Laura ase (Negative) Ethyl Alcohol < 10 (0-10) mg/dL 10/18/20 Range/Units 01:41 WBC (4.0-10.0) 10^3/ uL RBC (4.1-5.3) 10^6/u L Hgb (11.7-16.6) g/dL Hct (42.0-52.0) % MCV (80-94) fL MCH (28.0-34.0) pg MCHC (30.0-36.0) g/dL RDW (12.1-15.1) % Plt Count (130-400) 10^3/c mm MPV (7.4-10.4) fL Neut % (Auto) % Lymph % (Auto) % [place] % (Auto) % Eos % (Auto) % Baso % (Auto) % Neut # (Auto) (1.8-7.7) 10^3/u L Lymph # (Auto) (0.8-4.8) 10^3/u L [place] # (Auto) (0.2-0.9) 10^3/u L Eos # (Auto) (0.0-0.8) 10^3/u L Baso # (Auto) (0.0-0.1) 10^3/u L Nucleated RBC % (a uto) % Nucleated RBCs # /100WBC PT (12.1-14.9) SECO NDS INR (0.8-1.2) Sodium (136-145) mmol/L Potassium (3.5-5.1) mmol/L Chloride (98-107) mmol/L Carbon Dioxide (22-29) mmol/L Anion Gap (5-19) BUN (6-20) mg/dL Creatinine (0.7-1.2) mg/dL GFR Calculation (90-130) mL/min Glucose (65-115) mg/dL Calculated Osmolal ity (285-295) mOsm/k g Lactate (0.5-2.2) mmol/L Calcium (8.5-10.5) mg/dL Total Bilirubin (0.15-1.2) mg/dL AST (0-40) U/L ALT (0-41) U/L Alkaline Phosphata se (40-130) IU/L C-Reactive Protein (0.0-4.9) mg/L Total Protein (6.6-8.7) g/dL Albumin (3.5-5.2) g/dL Globulin (1.3-4.6) g/dL Triglycerides (0-150) mg/dL Lipase (13-60) U/L Urine Color Yellow (Yellow) Urine Appearance Clear (CLEAR) Urine pH 5 (5-7) Ur Specific Gravit y 1.020 (1.005-1.030) Urine Protein Neg (Negative) Urine Glucose (UA) Norm (Normal) Urine Ketones Negative (Negative) Urine Blood Neg (Negative) Urine Nitrate Negative (Negative) Urine Bilirubin Neg (Negative) Urine Urobilinogen Norm (Negative) mg/dL Ur Leukocyte Laura ase Negative (Negative) Ethyl Alcohol (0-10) mg/dL Discharge Plan Discharge Patient Disposition: Placed in Observation Admit Provider: Candelario Jeffries Clinical Impression: Pancreatitis Qualifiers: Chronicity: acute Pancreatitis type: unspecified pancreatitis type Acute pancreatitis complication: unspecified Qualified Code(s): K85.90 - Acute pancreatitis without necrosis or infection, unspecified Coding Level of Care Code ED Bacteriologist Industrial for [facility] Fwd Exam Comprehensive
[2020-10-18 03:19] LABS: Lipase 7147 U/L (13-60)
[2020-10-18 04:01] LABS: Triglycerides 1331 mg/dL (0-150)
[2020-10-18 04:09] LABS: Alcohol Level < 10 mg/dL (0-10)
[2020-10-18] MEDS: piperacillin-tazobactam 3.375 GM in sodium chloride 0.9% (plus) 50 ML IV (04:10)
[2020-10-18 04:18] LABS: LDL Cholesterol Direct 57 mg/dL (0-100)
[2020-10-18 05:13] LABS: Magnesium 2.1 mg/dL (1.7-2.3)
[2020-10-18 05:42] LABS: Glucose Point of Care 139 mg/dL (70-110)
[2020-10-18] MEDS: D5-NS 0.45% + KCL 20 mEq 20 MEQ/1,000 ML BAG 100 MEQ IV ×2 (05:47→15:10)
[2020-10-18] MEDS: insulin regular-human 250 UNIT in sodium chloride 0.9% 250 ML IV (06:23)
[2020-10-18 06:35] LABS: Glucose Point of Care 140 mg/dL (70-110)
[2020-10-18 07:20] LABS: Glucose Point of Care 125 mg/dL (70-110)
[2020-10-18] MEDS: folic acid 1 mg Tablet PO (07:54)
[2020-10-18 08:21] LABS: Amphetamines Screen Urine Negative (Negative); Barbiturates Screen Urine Negative (Negative); Benzodiazepines Screen Urine Negative (Negative); Cocaine Screen Urine Negative (Negative); Opiate Screen Urine Positive (Negative); PCP Screen Urine Negative (Negative); THC Screen Urine Negative (Negative)
--- NOTE | 2020-10-18 08:28 | PM.PN ---
Subjective Subjective: Interval history: Pain in the lower abdomen about a 3, sometimes a bit worse. He tried to eat some broth earlier. No vomiting. Denies other complaints. Requests for something for pain. Vitals/I&O/Wt Last Vital Signs Temp 97.6 F 10/18/20 04:55 Pulse 98 10/18/20 08:15 Resp 20 H 10/18/20 08:15 BP 129/88 10/18/20 08:15 Pulse Ox 92 10/18/20 08:15 10/17/20 10/18/20 10/18/20 22:59 06:59 14:59 Intake Total 1000 / 1000 120 / 120 Output Total 0 / 0 Balance 1000 / 1000 120 / 120 Weight last 48 hrs Weight 111.13 kg Physical Exam Const: COMMON NORMALS: no acute distress, patient oriented x3 and alert NUTRITIONAL APPEARANCE: overweight ORIENTATION/CONSCIOUSNESS: Yes awake HENMT: COMMON NORMALS: oropharynx normal Neck/C-Spine: COMMON NORMALS: no JVD Resp: COMMON NORMALS: normal respiratory effort and clear to auscultation bilaterally AUSCULTATION: clear to auscultation bilaterally Cardio: COMMON NORMALS: no JVD, regular rhythm, S1 normal heart sound present, S2 normal heart sound present and No murmurs present (Cardio) RHYTHM: regular rhythm HEART SOUNDS: S1 normal heart sound present and S2 normal heart sound present GI: COMMON NORMALS: Normal to inspection, nondistended, normoactive bowel sounds present and Soft to palpation PALPATION: Yes Soft to palpation and Yes Tenderness to palpation present (GI) (lower abdomen and epigastrium) Extremity: COMMON NORMALS: no joint enlargement and no pedal edema Neuro: COMMON NORMALS: patient oriented x3 and moves all extremities SENSORIUM/ORIENTATION: Yes alert Skin: COMMON NORMALS: no rashes or lesions noted GENERAL SKIN EXAM: no rashes or lesions noted Data : 10/18/20 00:55 10/18/20 00:55 A&P Assessment and plan (1) Pancreatitis: Acute pancreatitis secondary to EtOH and hypertriglyceridemia Continue insulin drip for hyper triglyceridemia. Monitor lipase and triglyceride levels. Pain, nausea symptomatic management. Status: Acute Qualifiers: Acute pancreatitis complication: unspecified Chronicity: acute Pancreatitis type: unspecified pancreatitis type Qualified Code(s): K85.90 - Acute pancreatitis without necrosis or infection, unspecified Additional A&P Information Alcohol abuse: Add thiamine and folic acid, monitor for withdrawal. Case management to provide options for help with cessation. Hypetrtriglyceridemia: would benefit from weight loss, increase in physical activity. Alcohol cessation. Fibrate. Nicotine dependence: Smoking 5 to 7 cigarettes a day, counseled on smoking cessation Atelectasis: IS Full code Clear liquid diet DVT prophylaxis not needed as he is low risk Attestations Medical Necessity Statement*: Continue admission for acute pancreatitis with hypertriglyceridemia. Coding Level of Care Code Acute Tongue Lining Stitcher for [facility] Diagnoses Pancreatitis K85.90 Acute pancreatitis complication: unspecified Chronicity: acute Pancreatitis type: unspecified pancreatitis type
[2020-10-18] MEDS: HYDROmorphone 1 mg/mL INJ 1 mL 2 MG IVP ×3 (08:38→17:18)
[2020-10-18 09:03] LABS: Glucose Point of Care 143 mg/dL (70-110)
--- NOTE | 2020-10-18 09:20 | PC.NURSE ---
Assessment Pt resting in bed this shift. Complaining of abdominal pain at 6/10. Sates it feels like tight pressure. PRN pain medication given per orders. Patient is resting with eyes closed. Will continue to monitor
--- NOTE | 2020-10-18 09:25 | PC.CHAP ---
Pastoral Care Encounter/Spiritual Assessment Type of Contact [] Declined pump operator byproducts visit [] Patient/Family/Request visit [] Outpatient visit [] Follow-up visit [] Physician referral [] Code/Alert [] Routine visit [] Staff referral [] Actively dying [] Patient sleeping [] Family support [] [] Out of room [] Palliative care [] [] Receiving care in room [] Pre-surgical visit [] Trauma [] Long length of stay [x] ICU visit [] Other: Relational/Emotional Strength [] Patient feels connected with others/family/visitors/staff [] Distress [] Loneliness/isolation [] Abandonment Spirituality of Patient [] Person of Leonie [] Attends Samaritan of their Leonie [] Believes in Prayer [] Reads Bible or Latter Day materials [] There are Spiritual issues to be addressed Banquet Server On Call Interventions [x] Prayer [] Active listening [] Non-anxious presence [] Spiritual/emotional support [] Crisis/trauma care [] Spiritual counseling [] Bereavement support [] Provided bereavement packet [] Provided Bible/devotional materials [] Provided toy/stuffed animal, coloring book to patient or family member [] Provided Communion [] Anointing/[place] [] Salvation [x] Completed spiritual assessment [] Other: Impact on Illness or Injury [] Angry [] Fearful [] Anxious [] Often cries [] Exhaustion [] Unable to work [] Unable to attend sikh [] Unable to walk/stand [] Unable to read [] Unable to drive [] Unable to eat/drink [] Unable to sleep [] Unable to be with family [] Patient intubated [] Other: Summary Time spent with patient x
[2020-10-18 10:08] LABS: Glucose Point of Care 129 mg/dL (70-110)
[2020-10-18 10:53] LABS: Glucose Point of Care 118 mg/dL (70-110)
[2020-10-18 11:59] LABS: Glucose Point of Care 138 mg/dL (70-110)
[2020-10-18 12:01] LABS: Glucose Point of Care 115 mg/dL (70-110)
[2020-10-18 13:04] LABS: Glucose Point of Care 100 mg/dL (70-110)
--- NOTE | 2020-10-18 13:47 | PC.RESP ---
Smoking Cessation information sent to patient.
[2020-10-18 14:30] LABS: Glucose Point of Care 119 mg/dL (70-110)
[2020-10-18 15:11] LABS: Glucose Point of Care 125 mg/dL (70-110)
[2020-10-18] MEDS: dextrose 5% 1,000 ML 100 ML IV (16:36)
[2020-10-18 16:40] LABS: Glucose Point of Care 98 mg/dL (70-110)
--- NOTE | 2020-10-18 16:51 | PC.NURSE ---
Blood sugar checks informed this nurse of changes in fluids and was told to stop insulin and to check blood sugar again in 2 hours. Will check sugar at 1800
[2020-10-18 17:12] LABS: Triglycerides 696 mg/dL (0-150)
[2020-10-18 17:54] LABS: LDL Cholesterol Direct 70 mg/dL (0-100)
[2020-10-18 18:26] LABS: Glucose Point of Care 114 mg/dL (70-110)
[2020-10-18] MEDS: dextrose 10% 1,000 ML 50 ML IV (19:45)
[2020-10-18 20:03] LABS: Glucose Point of Care 117 mg/dL (70-110)
[2020-10-19] VITALS (161 sets, daily range): BP systolic 115–166; BP diastolic 71–95; PULSE 93–113; RESP 13–29; TEMP 37.1–37.6; O2SAT 88–98
[2020-10-19 04:06] LABS: Basophils % 0.2 %; Eosinophils # 0.1 10^3/uL (0.0-0.8); Eosinophils % 0.6 %; Hematocrit 40.2 % (42.0-52.0); Hemoglobin 13.3 g/dL (11.7-16.6); Lymphocytes # 1.3 10^3/uL (0.8-4.8); Lymphocytes % 8.7 %; Mean Corpuscular HGB Conc 33.1 g/dL (30.0-36.0); Mean Corpuscular Hemoglobin 31.5 pg (28.0-34.0); Mean Corpuscular Volume 95.3 fL (80-94); Mean Platelet Volume 11.2 fL (7.4-10.4); Monocytes % 7.1 %; Neutrophils # 12.19 10^3/uL (1.8-7.7); Nucleated Red Blood Cells % 0 %; Platelet Count 172 10^3/cmm (130-400); Red Blood Count 4.22 10^6/uL (4.1-5.3); Red Cell Distribution Width 13.2 % (12.1-15.1); White Blood Count 14.7 10^3/uL (4.0-10.0)
[2020-10-19 04:37] LABS: Alanine Aminotransferase 30 U/L (0-41); Albumin Level 3.8 g/dL (3.5-5.2); Alkaline Phosphatase 76 IU/L (40-130); Aspartate Amino Transferase 20 U/L (0-40); Blood Urea Nitrogen 7 mg/dL (6-20); Carbon Dioxide 26 mmol/L (22-29); Chloride 100 mmol/L (98-107); Globulin 2.7 g/dL (1.3-4.6); Glomerular Filtration Rate 96.6 mL/min (90-130); Glucose 106 mg/dL (65-115); Lipase 225 U/L (13-60); Osmolality Calculated 280 mOsm/kg (285-295); Sodium 136 mmol/L (136-145); Total Protein 6.5 g/dL (6.6-8.7)
[2020-10-19 04:42] LABS: Triglycerides 573 mg/dL (0-150)
[2020-10-19] MEDS: HYDROmorphone 1 mg/mL INJ 1 mL 2 MG IVP ×4 (04:45→22:04)
[2020-10-19 05:38] LABS: LDL Cholesterol Direct 74 mg/dL (0-100)
--- NOTE | 2020-10-19 06:00 | XR_ITS ---
WS: [id number] XR chest 1V portable [id number] REASON FOR EXAM: Hypoxia FINDINGS: The chest is unchanged compared to previous examination 09/26/2020. The heart and mediastinum are within normal limits. Calcified granulomatous changes in both lung. There is vague retrocardiac density on the left which c orresponds to infiltrative density, groundglass density seen on the CT scan of the abdomen and pelvis 10/18/2020. Bony thorax is intact. XR/XR chest 1V portable [id number] IMPRESSION: Infiltrative change in the left lower lung substantiated by previous CT scan.
[2020-10-19 07:16] LABS: Glucose Point of Care 113 mg/dL (70-110)
[2020-10-19 07:16] LABS: Glucose Point of Care 117 mg/dL (70-110)
[2020-10-19 07:16] LABS: Glucose Point of Care 107 mg/dL (70-110)
[2020-10-19 07:16] LABS: Glucose Point of Care 101 mg/dL (70-110)
[2020-10-19 07:16] LABS: Glucose Point of Care 110 mg/dL (70-110)
[2020-10-19 07:16] LABS: Glucose Point of Care 102 mg/dL (70-110)
[2020-10-19 07:16] LABS: Glucose Point of Care 117 mg/dL (70-110)
[2020-10-19 07:16] LABS: Glucose Point of Care 121 mg/dL (70-110)
[2020-10-19 07:16] LABS: Glucose Point of Care 115 mg/dL (70-110)
[2020-10-19 07:16] LABS: Glucose Point of Care 118 mg/dL (70-110)
--- NOTE | 2020-10-19 08:00 | MR_ITS ---
WS: [id number] MRI/MRCP OF THE ABDOMEN WITHOUT GADOLINIUM ENHANCEMENT TECHNIQUE: Thin and thick slab MRCP, Axial T2, Coronal MRCP, Axial Dual Echo, and Axial 2-D Fiesta imaging was obtained. Coronal 2-D Fiesta imaging. CLINICAL INFORMATION: pancreatitis, CBD dilation COMPARISON: Ultrasound gallbladder October 18, 2020 FINDINGS: Some images degraded by motion. Hepatomegaly with diffuse fatty infiltration. Again seen is the slightly dilated common bile duct nunu suring 8 to 9 mm. No intrahepatic biliary ductal dilatation. No evidence of choledocholithiasis. No g allbladder wall thickening or pericholecystic fluid. Small polypoid lesions as previously described l ikely small polyps and/or sludge balls. Diffuse edema involving the pancreas worse in the pancreatic head consistent with acute pancreatitis. Peripancreatic edema and retroperitoneal edema worse in the left.. No drainable fluid collections. No pancreatic ductal dilatation. No evidence of pancreatic nec rosis. No hydronephrosis in either kidney. Normal caliber abdominal aorta Impression: 1. Again seen are changes of acute pancreatitis described above. 2. Mild prominence of the common bile duct measuring 8 to 9 mm. No evidence of choledocholithiasis. Normal tapering of the pancreatic head. 3. A few polypoid lesions in the gallbladder likely represent small polyps and/or sludge balls. 4. No gallbladder wall thickening or pericholecystic fluid. 5. Mild hepatomegaly with diffuse fatty infiltration. No intrahepatic biliary ductal dilatation. 6. No hydronephrosis in either kidney.
[2020-10-19] MEDS: folic acid 1 mg Tablet PO (08:14)
[2020-10-19 08:21] LABS: Glucose Point of Care 112 mg/dL (70-110)
--- NOTE | 2020-10-19 08:46 | PC.CHAP ---
Pastoral Care Encounter/Spiritual Assessment Type of Contact [] Declined greens picker visit [] Patient/Family/Request visit [] Outpatient visit [] Follow-up visit [] Physician referral [] Code/Alert [] Routine visit [] Staff referral [] Actively dying [] Patient sleeping [] Family support [] [] Out of room [] Palliative care [] [] Receiving care in room [] Pre-surgical visit [] Trauma [] Long length of stay [x] ICU visit [] Other: Relational/Emotional Strength [] Patient feels connected with others/family/visitors/staff [] Distress [] Loneliness/isolation [] Abandonment Spirituality of Patient [] Person of Leonie [] Attends Sabianism of their Leonie [] Believes in Prayer [] Reads Bible or Denominational materials [] There are Spiritual issues to be addressed Breast Trimmer Interventions [x] Prayer [] Active listening [] Non-anxious presence [] Spiritual/emotional support [] Crisis/trauma care [] Spiritual counseling [] Bereavement support [] Provided bereavement packet [] Provided Bible/devotional materials [] Provided toy/stuffed animal, coloring book to patient or family member [] Provided Communion [] Anointing/[place] [] Salvation [x] Completed spiritual assessment [] Other: Impact on Illness or Injury [] Angry [] Fearful [] Anxious [] Often cries [] Exhaustion [] Unable to work [] Unable to attend episcopal [] Unable to walk/stand [] Unable to read [] Unable to drive [] Unable to eat/drink [] Unable to sleep [] Unable to be with family [] Patient intubated [] Other: Summary Time spent with patient
[2020-10-19 09:23] LABS: Glucose Point of Care 133 mg/dL (70-110)
[2020-10-19 10:04] LABS: Glucose Point of Care 125 mg/dL (70-110)
[2020-10-19] MEDS: fenofibrate 48 mg Tablet PO (11:40)
[2020-10-19 12:17] LABS: Lipase 163 U/L (13-60); Triglycerides 594 mg/dL (0-150)
--- NOTE | 2020-10-19 12:20 | PC.NURSE ---
MRI Pt was taken to MRI via stretcher by EMS and accompanied by this nurse. Patient tolerated well and had no complaints.
[2020-10-19 12:49] LABS: LDL Cholesterol Direct 81 mg/dL (0-100)
[2020-10-19 13:11] LABS: Glucose Point of Care 106 mg/dL (70-110)
[2020-10-19 13:11] LABS: Glucose Point of Care 107 mg/dL (70-110)
[2020-10-19 14:05] LABS: Glucose Point of Care 94 mg/dL (70-110)
[2020-10-19 14:28] LABS: Glucose Point of Care 107 mg/dL (70-110)
[2020-10-19 15:10] LABS: Glucose Point of Care 98 mg/dL (70-110)
[2020-10-19 16:06] LABS: Glucose Point of Care 101 mg/dL (70-110)
[2020-10-19] MEDS: dextrose 10% 1,000 ML 50 ML IV (16:33)
[2020-10-19 17:07] LABS: Glucose Point of Care 101 mg/dL (70-110)
[2020-10-19 18:29] LABS: Lipase 121 U/L (13-60); Triglycerides 590 mg/dL (0-150)
--- NOTE | 2020-10-19 18:47 | PM.PN ---
Subjective Subjective: Interval history: Fito is doing all right today. His abdominal pain is little bit better, although some pain is still persistent in the lower abdomen and epigastrium. He has had no vomiting today. Tolerated oral diet. He has been okay with continuing just clear liquids. Vitals/I&O/Wt Last Vital Signs Temp 99.0 F 10/19/20 13:46 Pulse 108 H 10/19/20 18:00 Resp 23 H 10/19/20 18:00 BP 132/83 10/19/20 18:00 Pulse Ox 94 10/19/20 18:00 10/19/20 10/19/20 10/19/20 06:59 14:59 22:59 Intake Total 1000 / 2456.708 7.6 / 7.6 1481 / 1488.6 Output Total 600 / 600 Balance 1000 / 2456.708 -592.4 / -592.4 1481 / 888.6 Weight last 48 hrs Weight 111.13 kg Physical Exam Const: COMMON NORMALS: no acute distress, patient oriented x3 and alert NUTRITIONAL APPEARANCE: overweight ORIENTATION/CONSCIOUSNESS: Yes awake HENMT: COMMON NORMALS: oropharynx normal Neck/C-Spine: COMMON NORMALS: no JVD Resp: COMMON NORMALS: normal respiratory effort and clear to auscultation bilaterally AUSCULTATION: clear to auscultation bilaterally Cardio: COMMON NORMALS: no JVD, regular rhythm, S1 normal heart sound present, S2 normal heart sound present and No murmurs present (Cardio) RHYTHM: regular rhythm HEART SOUNDS: S1 normal heart sound present and S2 normal heart sound present GI: COMMON NORMALS: Normal to inspection, nondistended, normoactive bowel sounds present and Soft to palpation PALPATION: Yes Soft to palpation and Yes Tenderness to palpation present (GI) (lower abdomen and epigastrium although better compared to yesterday) Extremity: COMMON NORMALS: no joint enlargement and no pedal edema Neuro: COMMON NORMALS: patient oriented x3 and moves all extremities SENSORIUM/ORIENTATION: Yes alert Skin: COMMON NORMALS: no rashes or lesions noted GENERAL SKIN EXAM: no rashes or lesions noted Data : 10/19/20 03:18 10/19/20 03:18 A&P Assessment and plan (1) Pancreatitis: Lipase level is decreasing, however, triglyceride level still 594 on recheck at noon today and 590 this evening. This is gradually decreasing, however, still above 500. For now continue insulin drip. We did adjust D10 rate up to 75 mL/h to allow for insulin drip of about 1.5 units/h. Briefly also discussed the option of addition of heparin drip, however, given he has been improving with insulin drip, and concern regarding risk of bleeding, with possible gastritis, for now we will hold off on adding heparin drip. MRCP with dilated CBD, no choledocholithiasis, no signs of cholangitis, possible polyps versus sludge balls in the gallbladder. No sign of cholecystitis. Acute pancreatitis secondary to EtOH and hypertriglyceridemia Recheck triglyceride levels in the morning. Pain, nausea symptomatic management. Status: Acute Qualifiers: Acute pancreatitis complication: unspecified Chronicity: acute Pancreatitis type: unspecified pancreatitis type Qualified Code(s): K85.90 - Acute pancreatitis without necrosis or infection, unspecified Additional A&P Information Possible pneumonia: Persistent groundglass opacity in the left lower lobe despite use of incentive spirometer. Sinus tachycardia, leukocytosis. Discussed with him possible pneumonia, with some noted tachypnea on vitals. His CIWA score minimally elevated up to 5 highest. He appears calm. Due to possible pneumonia we will at this time treat with Levaquin. This should also provide coverage for possible urinary tract infection, although UA was unremarkable, but with thickened urinary bladder wall. We will also obtain rapid coronavirus test given low-grade fever last night of 100.4, temp 99.6 today. Some tachypnea, last night some mild desaturation oxygen level down to as low as 89% on room air. Possible sepsis: Possible pneumonia. Less likely urinary tract infection. Levaquin as above. Blood cultures requested. Lactic acid. Thickening of stomach wall: Discussed incidental finding with him. Possible local inflammation from pancreatitis. He has been having epigastric discomfort, although currently this appears to be better. No vomiting. Appetite has been okay. Another possibility may be gastritis, possibly viral, versus related to alcohol. Discussed with him also concerns to exclude malignancy given smoking history with endoscopic evaluation after discharge. He is agreeable at this time to start with a PPI. Urinary bladder thickening: Unclear cause of this. Urinalysis not suggestive of UTI. Additional antibiotic treatment with Levaquin as above. Discussed with him concern also regarding smoking history which elevates his risk for genitourinary cancers, and so this would benefit from closer evaluation by urology at some point after he recovers after discharge. He reports understanding and will be seeking referral from his PCP to urology. Alcohol abuse: Add thiamine and folic acid, monitor for withdrawal. He is declined any additional assistance with pursuing cessation options via case management stating he is intent on doing so independently. Hypetrtriglyceridemia: Would benefit from weight loss, increase in physical activity. Alcohol cessation. Fibrate. Nicotine dependence: Smoking 5 to 7 cigarettes a day. Continue to encourage smoking cessation. Atelectasis: IS Full code Clear liquid diet DVT prophylaxis SCDs Attestations Medical Necessity Statement*: Continue admission for assessment and management of acute pancreatitis, severe hypertriglyceridemia, possible pneumonia, possible sepsis. 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
[2020-10-19 18:59] LABS: LDL Cholesterol Direct 78 mg/dL (0-100)
[2020-10-19 19:50] LABS: Lactate (Lactic Acid level) 1.1 mmol/L (0.5-2.2)
[2020-10-19] MEDS: pantoprazole DR 40 mg Tablet PO (20:31)
[2020-10-19] MEDS: levoFLOXacin 750 mg Tablet PO (20:32)
[2020-10-19 21:41] LABS: Glucose Point of Care 108 mg/dL (70-110)
[2020-10-20] VITALS (47 sets, daily range): BP systolic 104–155; BP diastolic 65–92; PULSE 92–108; RESP 11–26; TEMP 36.6–37.2; O2SAT 91–97; BMI 35.9
[2020-10-20] MEDS: HYDROmorphone 1 mg/mL INJ 1 mL 2 MG IVP ×3 (02:09→14:01)
[2020-10-20 03:21] LABS: SARS Covid-2 Antigen Negative (Negative)
[2020-10-20] MEDS: dextrose 10% 1,000 ML 50 ML IV ×2 (04:00→16:40)
[2020-10-20 04:22] LABS: Basophils % 0.3 %; Eosinophils # 0.2 10^3/uL (0.0-0.8); Eosinophils % 1.6 %; Hematocrit 35.8 % (42.0-52.0); Hemoglobin 11.5 g/dL (11.7-16.6); Lymphocytes # 1.5 10^3/uL (0.8-4.8); Lymphocytes % 11.2 %; Mean Corpuscular HGB Conc 32.1 g/dL (30.0-36.0); Mean Corpuscular Volume 96.5 fL (80-94); Mean Platelet Volume 11.1 fL (7.4-10.4); Monocytes # 1.1 10^3/uL (0.2-0.9); Monocytes % 8.1 %; Neutrophils # 10.42 10^3/uL (1.8-7.7); Nucleated Red Blood Cells % 0 %; Platelet Count 153 10^3/cmm (130-400); Red Blood Count 3.71 10^6/uL (4.1-5.3); Red Cell Distribution Width 12.8 % (12.1-15.1); White Blood Count 13.4 10^3/uL (4.0-10.0)
[2020-10-20 04:45] LABS: Lipase 80 U/L (13-60); Triglycerides 548 mg/dL (0-150)
[2020-10-20 04:49] LABS: Alanine Aminotransferase 21 U/L (0-41); Albumin Level 3.3 g/dL (3.5-5.2); Alkaline Phosphatase 66 IU/L (40-130); Anion Gap 9.7 (5-19); Aspartate Amino Transferase 41 U/L (0-40); Blood Urea Nitrogen 7 mg/dL (6-20); Calcium 8.9 mg/dL (8.5-10.5); Carbon Dioxide 28 mmol/L (22-29); Chloride 99 mmol/L (98-107); Globulin 3.1 g/dL (1.3-4.6); Glomerular Filtration Rate 85.5 mL/min (90-130); Glucose 116 mg/dL (65-115); Osmolality Calculated 275 mOsm/kg (285-295); Potassium 3.7 mmol/L (3.5-5.1); Sodium 133 mmol/L (136-145); Total Bilirubin 0.7 mg/dL (0.15-1.2); Total Protein 6.4 g/dL (6.6-8.7)
[2020-10-20 05:44] LABS: LDL Cholesterol Direct 67 mg/dL (0-100)
[2020-10-20 06:28] LABS: Glucose Point of Care 100 mg/dL (70-110)
[2020-10-20 06:28] LABS: Glucose Point of Care 105 mg/dL (70-110)
[2020-10-20 06:28] LABS: Glucose Point of Care 115 mg/dL (70-110)
[2020-10-20 06:28] LABS: Glucose Point of Care 124 mg/dL (70-110)
[2020-10-20 07:45] LABS: Glucose Point of Care 111 mg/dL (70-110)
[2020-10-20] MEDS: folic acid 1 mg Tablet PO (08:10)
[2020-10-20] MEDS: fenofibrate 48 mg Tablet PO (08:11)
[2020-10-20 08:18] LABS: Glucose Point of Care 103 mg/dL (70-110)
[2020-10-20] MEDS: omega-3 fatty acids 1,000 mg Capsule 2000 MG PO (09:47)
--- NOTE | 2020-10-20 09:47 | P.PN_ITS ---
Subjective Subjective: Interval history: He is feeling somewhat better. Abdominal pain is improving. Denies shortness of breath. No chest pain. Appetite is perhaps slightly better. Vitals/I&O/Wt Last Vital Signs Temp 98.7 F 10/20/20 06:30 Pulse 102 H 10/20/20 08:30 Resp 19 H 10/20/20 08:30 BP 122/74 10/20/20 08:30 Pulse Ox 91 10/20/20 07:30 10/19/20 10/20/20 10/20/20 22:59 06:59 14:59 Intake Total 1481 / 1488.6 1572.5 / 3061.1 300 / 300 Output Total 1400 / 2000 300 / 300 Balance 1481 / 888.6 172.5 / 1061.1 0 / 0 Weight last 48 hrs Weight 113.483 kg Physical Exam Const: COMMON NORMALS: no acute distress, patient oriented x3 and alert NUTRITIONAL APPEARANCE: overweight ORIENTATION/CONSCIOUSNESS: Yes awake HENMT: COMMON NORMALS: oropharynx normal Neck/C-Spine: COMMON NORMALS: no JVD Resp: COMMON NORMALS: normal respiratory effort and clear to auscultation bilaterally AUSCULTATION: clear to auscultation bilaterally Cardio: COMMON NORMALS: no JVD, regular rhythm, S1 normal heart sound present, S2 normal heart sound present and No murmurs present (Cardio) RHYTHM: regular rhythm HEART SOUNDS: S1 normal heart sound present and S2 normal heart sound present GI: COMMON NORMALS: Normal to inspection, nondistended, normoactive bowel sounds present and Soft to palpation PALPATION: Yes Soft to palpation and Yes Tenderness to palpation present (GI) (LLQ, other parts of abdomen much better) Extremity: COMMON NORMALS: no joint enlargement and no pedal edema Neuro: COMMON NORMALS: patient oriented x3 and moves all extremities SE NSORIUM/ORIENTATION: Yes alert Skin: COMMON NORMALS: no rashes or lesions noted GENERAL SKIN EXAM: no rashes or lesions noted Data : 10/20/20 04:07 10/20/20 04:07 Micro: Microbiology 10/19/20 19:13 Blood Culture - Preliminary Blood SPECIMEN COLLECTED 10/19/20 19:10 Blood Culture - Preliminary Blood SPECIMEN COLLECTED A&P Assessment and plan (1) Pancreatitis: Triglycerides decreasing slowly. Down to 548 currrently. Symptomatically he is improving. Continue insulin drip, D10. Low-fat diet. Increase fenofibrate dose to 96 mg. Add omega-3 fatty acids. Discussed consideration of niacin, however, with possible PUD, flushing side effects for now we will hold off, he states may further discuss with primary care provider. Recheck triglyceride levels in the afternoon. If continue to improve, perhaps may be better to return home today as he is close to the [address] on the triglyceride level. Still has some sinus tachycardia, 102, however, leukocytosis is improving. He remains afebrile. Symptomatically feeling better. Lipase is decreasing. Check lipid profile. A1c as had hyperglycemia on presentation with glucose 142. No known history of diabetes. MRCP with dilated CBD, no choledocholithiasis, no signs of cholangitis, possible polyps versus sludge balls in the gallbladder. No sign of cholecystitis. Acute pancreatitis secondary to hypertriglyceridemia, EtOH Pain, nausea symptomatic management. Status: Acute Qualifiers: Acute pancreatitis complication: unspecified Chronicity: acute Pancreatitis type: unspecified pancreatitis type Qualified Code(s): K85.90 - Acute pancreatitis without necrosis or infection, unspecified Additional A&P Information Possible pneumonia: Started on Levaquin. Tachypnea is better. Tachycardia better. Afebrile now. Rapid COVID-19 negative. Possible sepsis: Improved. Possible pneumonia. Less likely urinary tract infection. Levaquin as above. Blood cultures requested. Lactic acid. Thickening of stomach wall: Discussed incidental finding with him. Possible local inflammation from pancreatitis. He has been having epigastric discomfort, although currently this appears to be better. No vomiting. Appetite has been okay. Another possibility may be gastritis, possibly viral, versus related to alcohol. Discussed with him also concerns to exclude malignancy given smoking history with endoscopic evaluation after discharge. Started PPI. Urinary bladder thickening: Unclear cause of this. Urinalysis not suggestive of UTI. Additional antibiotic treatment with Levaquin as above. Discussed with him concern also regarding smoking history which elevates his risk for genitourinary cancers, and so this would benefit from closer evaluation by urology at some point after he recovers after discharge. He reports understanding and will be seeking referral from his PCP to urology. Alcohol abuse: Add thiamine and folic acid, monitor for withdrawal. He is declined any additional assistance with pursuing cessation options via case management stating he is intent on doing so independently. Cessation will be crucial to maintaining triglyceride levels in check. Hypetrtriglyceridemia: Would benefit from weight loss, increase in physical activity. Alcohol cessation. Fibrate. [place] 3. Hold off niacin for now. Check lipid profile. A1c. Nicotine dependence: Smoking 5 to 7 cigarettes a day. Continue to encourage smoking cessation. Atelectasis: IS Full code Clear liquid diet DVT prophylaxis SCDs Attestations Medical Necessity Statement*: Continue admission for acute pancreatitis with severe hypertrigleceridemia, possible pneumonia, possible gastritis. If continues to improve, discharge home possibly later today or tomorrow. 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
[2020-10-20 09:57] LABS: Glucose Point of Care 109 mg/dL (70-110)
[2020-10-20 10:21] LABS: Chol HDL Ratio 12.24 mg/dL (1.0-5.00); Cholesterol 208 mg/dL (0-200); HDL Cholesterol 17 mg/dL (60-100); Triglycerides 562 mg/dL (0-150); VLDL Cholestrol Calculation 112 mg/dL (0-30)
[2020-10-20 11:14] LABS: Glucose Point of Care 101 mg/dL (70-110)
[2020-10-20 11:14] LABS: Glucose Point of Care 124 mg/dL (70-110)
[2020-10-20 12:05] LABS: Glucose Point of Care 95 mg/dL (70-110)
[2020-10-20 12:38] LABS: Estmated Average Glucose 97
[2020-10-20 14:14] LABS: Glucose Point of Care 100 mg/dL (70-110)
[2020-10-20 16:03] LABS: Glucose Point of Care 122 mg/dL (70-110)
[2020-10-20 17:32] LABS: Triglycerides 675 mg/dL (0-150)
[2020-10-20 17:56] LABS: LDL Cholesterol Direct 75 mg/dL (0-100)
[2020-10-20 18:10] LABS: Glucose Point of Care 119 mg/dL (70-110)
[2020-10-20] MEDS: levoFLOXacin 750 mg Tablet PO (18:31)
[2020-10-20] MEDS: pantoprazole DR 40 mg Tablet PO (18:32)
--- NOTE | 2020-10-20 18:53 | PM.DCS ---
Discharge Providers Date of Admission: 10/18/20 04:37 Date of Discharge: October 20, 2020 Attending Provider at Admission: Candelario Jeffries MD Attending Provider at Discharge: Chad Welch Diagnoses at Discharge Discharge Diagnosis (1) Pancreatitis: Status: Acute Qualifiers: Acute pancreatitis complication: unspecified Chronicity: acute Pancreatitis type: unspecified pancreatitis type Qualified Code(s): K85.90 - Acute pancreatitis without necrosis or infection, unspecified (2) Hypertriglyceridemia: Status: Acute (3) Daily consumption of alcohol: Status: Acute (4) Cigarette smoker: Status: Acute (5) Left lower lobe pneumonia: Status: Acute (6) Gastric wall thickening: Status: Acute (7) Bladder wall thickening: Status: Acute Permanent problem details: Urinary bladder wall thickening, UA not suggestive of UTI (8) Dilation of common bile duct: Status: Acute Permanent problem details: 8-9mm (9) Biliary sludge: Status: Acute (10) Gall bladder polyp: Status: Acute Permanent problem details: Possible GB polyps vs sludge Reason for Visit Reason for Visit: suspects pancreatitis Hospital Course Hospital Course Pleasant 34-year-old gentleman, without much significant past medical history, but current cigarette smoker, 5-7 cigarettes/day, with current frequent alcohol intake of more than 4 drinks per day, was admitted for assessment and management of acute pancreatitis after presenting with abdominal pain, with reported episode of pancreatitis 3 weeks previously, returned with worsening abdominal pain. On admission he was noted to have elevated lipase of 7147. Noted leukocytosis 22.5. Predominantly neutrophilic. AST 54, ALT 50. Normal T bili and alkaline phosphatase. CRP 46.4. Urine drug screen positive only for opiates. CT abdomen pelvis with contrast on presentation showed findings compatible with acute pancreatitis, with moderate inflammatory changes around the pancreas, small amount of peripancreatic and retroperitoneal fluid, no definitive pseudocyst, with inflammatory changes more prominent than prior examination, with mild extrahepatic biliary tree dilation, no visible gallstones on CT. With also a number of incidental findings with possible thickened mucosa/wall in the distal stomach. Possibly secondary to adjacent pancreatic formation, but could be gastritis or peptic ulcer disease. Also noted suspected urinary bladder wall thickening. No hydronephrosis no calculi no perinephric fluid. Suspected mild atelectasis in lower lungs bilaterally, greater on the left, pneumonitis not excluded. Please see study for details. His urinalysis was unremarkable. On social history on admission he states had been consuming large amounts of beer, concerning that this is something he feels he needs to deal with. However, he has preferred to seek rehabilitation on his own after options were offered to him by case management during the hospitalization. As part of initial work-up he also underwent assessment of triglyceride level, which was found very elevated at 1330. He was moved to intensive care unit and initiated on insulin drip for treatment of triglyceridemia pancreatitis. He additionally underwent assessment by gallbladder ultrasonography in the with noted mild hepatomegaly with diffuse infiltration of the liver, dilated common bile duct at 8.3 mm, with polyps or sludge balls in the neck and fundus of the gallbladder, no gallbladder wall thickening. He was maintained on bowel rest. Initially without antibiotics. His condition, as well as CT and ultrasonography findings were discussed with GI over at . Given his liver parameters, lack of jaundice, there was lack of evidence of obstructive changes, and most likely cause of his pancreatitis may have been triglyceride level elevation, as well as contribution from EtOH with recommendation for continued treatment as initiated. Possibly a passed stone. As per recommendation additional assessment was obtained by MRCP, with again noted acute pancreatitis, mild prominence of CBD at 8-9 mm, no evidence of choledocholithiasis, normal tapering of pancreatic head. If you polypoid lesions in the gallbladder likely representing small polyps and/or sludge balls. No gallbladder wall thickening noted, no pericholecystic fluid. Mild hepatomegaly with diffuse fatty infiltration, nontraumatic biliary dilation. His condition showed gradual improvement. His triglyceride levels initially improved very well down to 690s and subsequently down to 590s where they somewhat plateaued. Lowest level this morning 548. He is additionally been treated with infusional fenofibrate, dose of which was increased today, addition of omega-3 fatty acid, consideration of additional therapy was also given to heparin drip, although given thickening of gastric mucosa/wall, with possible PUD this was deferred due to risk of bleeding. Consideration was also given to possible medicine treatment, as discussed with him, although he will further discuss this with primary care provider given concern for possible active PUD. He has been also symptomatically managed with pain and nausea control. Also started on PPI. His lipase has been progressively decreasing. Down to as low as 80 this morning. His abdominal pain, predominantly epigastric and lower abdominal has been improving. However, with noted somewhat slow improvement and leukocytosis, at 14,000 on 10/19, with persistent sinus tachycardia 100-110, tachypnea up into mid 20s, with low-grade fever 100.1 on 10/18 evening was additionally started on Levaquin for possible pneumonia, with possibility of cystitis is noted on CT, although urinalysis was rather against this. He was monitored for alcohol withdrawal. Started on thiamine and folic acid His liver parameters had improved, without suggestion of any ongoing cholestasis. Given he has shown continued gradual improvement, with further improvement in leukocytosis to 13.4 today, with improvement tachycardia to low 90s, remaining afebrile, tolerating oral diet, and subjectively feeling much better he should be safe enough to return home to continue recovery there. As discussed with him with consideration of possible referral to gastroenterology for additional evaluation of his multifactorial pancreatitis, possible polyps in the gallbladder, as well as noted thickening of gastric mucosa/wall, with history of smoking with elevated risk of GI malignancy this will need to be excluded. For treatment of hypertriglyceridemia to prevent additional episodes of pancreatitis he is discharged with fenofibrate, statin (total cholesterol 208, LDL not reportable, HDL 17), omega-3 fatty acids. Please discuss with him consideration of niacin once active PUD is treated/excluded. Low fat diet. As discussed with him please follow-up and assist him with alcohol cessation as this will be crucial to preventing further episodes of pancreatitis and maintaining triglyceride levels. He is also encouraged to quit smoking given this may contribute to episodes of pancreatitis in rare cases. He is discharged with a course of Levaquin to complete for possible bacterial pneumonia. Rapid COVID-19 test in the hospital was negative. Please follow-up with him for resolution of left lower lobe infiltrate given history of smoking. Please also follow-up regarding urinary bladder wall thickening, for which additional assessment by urology would be beneficial to exclude risk of genitourinary malignancy due to history of smoking. Noted mild anemia on dischaarge, Hb 11.5 may be dilutional. Please reassess and assess further if remains persistent. On recheck triglyceride level this evening it is 675, which is worse than this morning. I discussed briefly with our millwright instructor. Most of his risk of recurrence of pancreatitis now should be gone given he is below 1000 level. We discussed with patient additional options including continuation of treatment in the hospital, discontinuation of insulin drip and monitoring overnight with recheck of triglyceride levels and lipase tomorrow, vs returning home with outpatient follow up and optimization of medical therapy for hypertryglyceridemia to prevent additional episodes of pancreatitis, with the risk of triglyceride levels further increasing, with repeat pancreatitis and worsening in his condition which may be lifethreatening. On careful consideration he states he is feeling much better, he has been up and about and is eating, he understands the risks and is aware of red flags to beware of, and would much rather return home to continue follow up outpatient with continuation of oral medications, and other lifestyle modifications as discussed in detail with him again. He states he would call 911 in case of any concerning symptoms as they may herald a much more severe and disabling condition or be life threatening given his recent illness. He will let us know if he changes his mind and decides to stay to continue treatment or for additional monitoring. He will be monitored for additional at least 2 hours after discontinuation of insulin drip. He requests for pain medication to take home to alleviate pain as needed in case of recurrence. We discussed about safe use of pain medication, he understands not to use the medication as sleeping aid, understands potentially addicting qualities and also need to seek re-eevaluation promptly in case there is not rapid improvement over several days (given progressive improvement of lipase level and clinical improvement in the hospital). Reoprts that he has follow up arranged with [facility] in [place] with a doctor but does not remember her last name. States Dr Dill. We googled and appears it is Dr Emma Wild. Please see full notes and diagnostic studies for details. Do not hesitate to call with any questions. Physical Exam Const: COMMON NORMALS: no acute distress, patient oriented x3 and alert GENERAL APPEARANCE: cooperative and comfortable ORIENTATION/CONSCIOUSNESS: Yes awake OTHER: Pleasant, conversant. HENMT: COMMON NORMALS: oropharynx normal Neck/C-Spine: COMMON NORMALS: no JVD Resp: COMMON NORMALS: normal respiratory effort and clear to auscultation bilaterally AUSCULTATION: clear to auscultation bilaterally Cardio: COMMON NORMALS: no JVD, regular rhythm, S1 normal heart sound present, S2 normal heart sound present and No murmurs present (Cardio) RHYTHM: regular rhythm HEART SOUNDS: S1 normal heart sound present and S2 normal heart sound present GI: COMMON NORMALS: Normal to inspection, nondistended, normoactive bowel sounds present, Soft to palpation and non-tender PALPATION: Yes Soft to palpation Extremity: COMMON NORMALS: no joint enlargement and no pedal edema Neuro: COMMON NORMALS: patient oriented x3 and moves all extremities SENSORIUM/ORIENTATION: Yes alert Skin: COMMON NORMALS: no rashes or lesions noted GENERAL SKIN EXAM: no rashes or lesions noted Discharge Data Data Completed and Pending: Completed Studies During Hospitalization Category Date Time Status CT abdomen pelvis w con* [id number] Urge nt Cat Scan 10/18/20 01:03 Completed XR chest 1V karol ble [id number] Routine Exams 10/19/20 06:00 Completed MR MRCP [id number] Rou junior MRI 10/19/20 08:00 Completed US gall bladder 7 [id number] Urgent Ultrasound 10/18/20 01:07 Completed Pending at discharge Category Date Time Status Blood Culture Sta t Lab 10/19/20 19:13 Results Complete Blood Co unt w/Auto AM LABS Lab 10/21/20 04:00 Ordered Complete Blood Co unt w/Auto AM LABS Lab 10/22/20 04:00 Ordered Comprehensive Met abolic Panel AM LA BS Lab 10/21/20 04:00 Ordered Comprehensive Met abolic Panel AM LA BS Lab 10/22/20 04:00 Ordered Labs from last 24 hours 10/20/20 10/20/20 10/20/20 18:08 16:32 15:58 WBC RBC Hgb Hct MCV MCH MCHC RDW Plt Count MPV Neut % (Auto) Lymph % (Auto) [place] % (Auto) Eos % (Auto) Baso % (Auto) Neut # (Auto) Lymph # (Auto) [place] # (Auto) Eos # (Auto) Baso # (Auto) Nucleated RBC % (a uto) Nucleated RBCs # Sodium Potassium Chloride Carbon Dioxide Anion Gap BUN Creatinine GFR Calculation Glucose POC Glucose 119 122 Estimat Average Gl ucose Hemoglobin A1c Calculated Osmolal ity Lactate Calcium Total Bilirubin AST ALT Alkaline Phosphata se Total Protein Albumin Globulin Triglycerides 675 H Cholesterol LDL Cholesterol Di rect 75 LDL Cholesterol, C alc Total VLDL Cholest cate HDL Cholesterol Cholesterol/HDL Ra evan Lipase SARS-CoV-2 Ag (Rap id) 10/20/20 10/20/20 10/20/20 14:12 12:02 09:51 WBC RBC Hgb Hct MCV MCH MCHC RDW Plt Count MPV Neut % (Auto) Lymph % (Auto) [place] % (Auto) Eos % (Auto) Baso % (Auto) Neut # (Auto) Lymph # (Auto) [place] # (Auto) Eos # (Auto) Baso # (Auto) Nucleated RBC % (a uto) Nucleated RBCs # Sodium Potassium Chloride Carbon Dioxide Anion Gap BUN Creatinine GFR Calculation Glucose POC Glucose 100 95 109 Estimat Average Gl ucose Hemoglobin A1c Calculated Osmolal ity Lactate Calcium Total Bilirubin AST ALT Alkaline Phosphata se Total Protein Albumin Globulin Triglycerides Cholesterol LDL Cholesterol Di rect LDL Cholesterol, C alc Total VLDL Cholest cate HDL Cholesterol Cholesterol/HDL Ra evan Lipase SARS-CoV-2 Ag (Rap id) 10/20/20 10/20/20 10/20/20 08:14 06:28 04:07 WBC RBC Hgb Hct MCV MCH MCHC RDW Plt Count MPV Neut % (Auto) Lymph % (Auto) [place] % (Auto) Eos % (Auto) Baso % (Auto) Neut # (Auto) Lymph # (Auto) [place] # (Auto) Eos # (Auto) Baso # (Auto) Nucleated RBC % (a uto) Nucleated RBCs # Sodium Potassium Chloride Carbon Dioxide Anion Gap BUN Creatinine GFR Calculation Glucose POC Glucose 103 111 Estimat Average Gl ucose 97 Hemoglobin A1c 5.0 Calculated Osmolal ity Lactate Calcium Total Bilirubin AST ALT Alkaline Phosphata se Total Protein Albumin Globulin Triglycerides Cholesterol LDL Cholesterol Di rect LDL Cholesterol, C alc Total VLDL Cholest cate HDL Cholesterol Cholesterol/HDL Ra evan Lipase SARS-CoV-2 Ag (Rap id) 10/20/20 10/20/20 10/20/20 04:07 04:07 04:07 WBC RBC Hgb Hct MCV MCH MCHC RDW Plt Count MPV Neut % (Auto) Lymph % (Auto) [place] % (Auto) Eos % (Auto) Baso % (Auto) Neut # (Auto) Lymph # (Auto) [place] # (Auto) Eos # (Auto) Baso # (Auto) Nucleated RBC % (a uto) Nucleated RBCs # Sodium 133 L Potassium 3.7 Chloride 99 Carbon Dioxide 28 Anion Gap 9.7 BUN 7 Creatinine 1.0 GFR Calculation 85.5 L Glucose 116 H POC Glucose Estimat Average Gl ucose Hemoglobin A1c Calculated Osmolal ity 275 L Lactate Calcium 8.9 Total Bilirubin 0.7 AST 41 H ALT 21 Alkaline Phosphata se 66 Total Protein 6.4 L Albumin 3.3 L Globulin 3.1 Triglycerides 562 H 548 H Cholesterol 208 H LDL Cholesterol Di rect 67 LDL Cholesterol, C alc Not Reportable Total VLDL Cholest cate 112 H HDL Cholesterol 17 L Cholesterol/HDL Ra evan 12.24 H Lipase 80 H SARS-CoV-2 Ag (Rap id) 10/20/20 10/20/20 10/20/20 04:07 04:06 02:04 WBC 13.4 H RBC 3.71 L Hgb 11.5 L Hct 35.8 L MCV 96.5 H MCH 31.0 MCHC 32.1 RDW 12.8 Plt Count 153 MPV 11.1 H Neut % (Auto) 78.0 Lymph % (Auto) 11.2 [place] % (Auto) 8.1 Eos % (Auto) 1.6 Baso % (Auto) 0.3 Neut # (Auto) 10.42 H Lymph # (Auto) 1.5 [place] # (Auto) 1.1 H Eos # (Auto) 0.2 Baso # (Auto) 0.0 Nucleated RBC % (a uto) 0 Nucleated RBCs # 0.0 Sodium Potassium Chloride Carbon Dioxide Anion Gap BUN Creatinine GFR Calculation Glucose POC Glucose 124 100 Estimat Average Gl ucose Hemoglobin A1c Calculated Osmolal ity Lactate Calcium Total Bilirubin AST ALT Alkaline Phosphata se Total Protein Albumin Globulin Triglycerides Cholesterol LDL Cholesterol Di rect LDL Cholesterol, C alc Total VLDL Cholest cate HDL Cholesterol Cholesterol/HDL Ra evan Lipase SARS-CoV-2 Ag (Rap id) 10/20/20 10/19/20 10/19/20 00:05 22:00 21:50 WBC RBC Hgb Hct MCV MCH MCHC RDW Plt Count MPV Neut % (Auto) Lymph % (Auto) [place] % (Auto) Eos % (Auto) Baso % (Auto) Neut # (Auto) Lymph # (Auto) [place] # (Auto) Eos # (Auto) Baso # (Auto) Nucleated RBC % (a uto) Nucleated RBCs # Sodium Potassium Chloride Carbon Dioxide Anion Gap BUN Creatinine GFR Calculation Glucose POC Glucose 115 101 Estimat Average Gl ucose Hemoglobin A1c Calculated Osmolal ity Lactate Calcium Total Bilirubin AST ALT Alkaline Phosphata se Total Protein Albumin Globulin Triglycerides Cholesterol LDL Cholesterol Di rect LDL Cholesterol, C alc Total VLDL Cholest cate HDL Cholesterol Cholesterol/HDL Ra evan Lipase SARS-CoV-2 Ag (Rap id) Negative 10/19/20 10/19/20 10/19/20 20:25 19:10 18:34 WBC RBC Hgb Hct MCV MCH MCHC RDW Plt Count MPV Neut % (Auto) Lymph % (Auto) [place] % (Auto) Eos % (Auto) Baso % (Auto) Neut # (Auto) Lymph # (Auto) [place] # (Auto) Eos # (Auto) Baso # (Auto) Nucleated RBC % (a uto) Nucleated RBCs # Sodium Potassium Chloride Carbon Dioxide Anion Gap BUN Creatinine GFR Calculation Glucose POC Glucose 105 124 Estimat Average Gl ucose Hemoglobin A1c Calculated Osmolal ity Lactate 1.1 Calcium Total Bilirubin AST ALT Alkaline Phosphata se Total Protein Albumin Globulin Triglycerides Cholesterol LDL Cholesterol Di rect LDL Cholesterol, C alc Total VLDL Cholest cate HDL Cholesterol Cholesterol/HDL Ra evan Lipase SARS-CoV-2 Ag (Rap id) 10/19/20 10/19/20 17:28 07:11 WBC RBC Hgb Hct MCV MCH MCHC RDW Plt Count MPV Neut % (Auto) Lymph % (Auto) [place] % (Auto) Eos % (Auto) Baso % (Auto) Neut # (Auto) Lymph # (Auto) [place] # (Auto) Eos # (Auto) Baso # (Auto) Nucleated RBC % (a uto) Nucleated RBCs # Sodium Potassium Chloride Carbon Dioxide Anion Gap BUN Creatinine GFR Calculation Glucose POC Glucose 108 Estimat Average Gl ucose Hemoglobin A1c Calculated Osmolal ity Lactate Calcium Total Bilirubin AST ALT Alkaline Phosphata se Total Protein Albumin Globulin Triglycerides Cholesterol LDL Cholesterol Di rect 78 LDL Cholesterol, C alc Total VLDL Cholest cate HDL Cholesterol Cholesterol/HDL Ra evan Lipase SARS-CoV-2 Ag (Rap id) Vitals: Last Vital Signs Temp 98.9 F 10/20/20 18:38 Pulse 100 10/20/20 18:38 Resp 19 H 10/20/20 18:38 BP 155/92 10/20/20 18:38 Pulse Ox 95 10/20/20 18:38 Discharge Plan Discharge Patient Disposition: Home Condition: Stable Prescriptions: New folic acid 1 mg Tablet 1 mg PO DAILY Qty: 30 RF: 0 thiamine HCl (vitamin B1) 100 mg tablet 100 mg PO DAILY Qty: 30 RF: 0 omega-3 fatty acids 1,000 mg Capsule 2,000 mg PO BID Qty: 120 RF: 0 pantoprazole 40 mg Tablet,Delayed Release (Dr/Ec) 40 mg PO Q24H Qty: 30 RF: 0 levofloxacin 750 mg Tablet 750 mg PO Q24H Qty: 6 RF: 0 simvastatin 20 mg tablet 20 mg PO QPM Qty: 30 RF: 0 fenofibrate nanocrystallized 48 mg Tablet 96 mg PO DAILY Qty: 60 RF: 0 tramadol 50 mg tablet 50 mg PO Q8H PRN (Reason: pain) Qty: 10 RF: 0 Continued lisinopril 20 mg tablet 20 mg PO DAILY Qty: 30 RF: 0 ondansetron HCl [Zofran] 4 mg tablet 4 mg PO Q6H PRN (Reason: nausea and vomiting) Qty: 10 RF: 0 Discharge Orders: Discharge Order (Routine); Ordered 10/20/20 Ordered By: Chad Welch Referrals: Aniyah Wild [Other] - 11/01/20 Discharge Diet: Low Fat Discharge Activity: Increase activity as tolerated Patient Instructions: Fenofibrate (By mouth), Pancreatitis (GEN), Low Fat Diet (GEN), Cigarette Smoking and Your Health (GEN), Weight Management (GEN), Abuse of Alcohol (GEN) Activity Restrictions/Additional Instructions: Please discuss with your primary care provider regarding your episode of pancreatitis, with very elevated triglyceride levels at 1331, possible contribution from alcohol, also noted dilation of common bile duct, common bile duct sludge or polyps as seen on ultrasound. Possible polyps seen in gall bladder on MRI. Discuss referral by the [facility] for assessment by a GI specialist. Maintain very low fat diet and discuss also for additional tips with regards to keeping triglyceride levels down, including weight loss and increasing exercise. Avoid any alcohol as it may lead to further episodes of pancreatitis itself and also lead to increase in triglyceride levels. Abstinence from alcohol will be crucial in avoiding further pancreatitis episodes and keeping triglyceride levels in check. Please discuss with your primary care doctor follow up of ground glass opacity in left lower lung with repeat imaging to confirm resolution. This is suspected atelectasis (temporary compression of lung tissue with not taking very deep breaths, please use incentive spirometry to help alleviate and open the lungs), however, if you start having any respiratory symptoms that may suggest pneumonia including cough, shortness of breath, fever, please seek medical attention as this may require additional treatment. Additionally imaging for resolution of the opacity should be performed to exclude other causes including malignancy for which smoking puts you at risk. Please discuss with your primary care doctor incidentally noted thickening of stomach wall. This may be local inflammation from pancreatitis, however, please discuss consideration for endoscopic evaluation as smoking puts your at risk of gastroesophageal cancers, including stomach cancer and these additional causes will need to be excluded. Please also discuss regarding finding of urinary bladder wall thickening seen on CT scan. Please discuss possible referral to urology for additional evaluation of urinary bladder as history of smoking puts you at risk of genitourinary cancers among others. Please also continue efforts to stop smoking. Among other risks associated with smoking including cardiovascular disease, various cancers, it can also in some instances contribute to cauding pancreatitis. 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
--- NOTE | 2020-10-20 20:35 | PC.NURSE ---
diSCHARGE INSTRUCTIONS GIVEN TO PATIENT, iv REMOVED FROM RIGHT ac, [place] IN TACT AND PRESSURE DRESSING APPLIE. pATIENT PROVIDED WITH DISCHARGE PAPERWORK AND PRESCRIPTION FOR TRAMADOL. PATIENT AMBULATED OUT OF UNIT WITH AFTER REFUSING WHEELCHAIR. NO SIGNS OF DISTRESS NOTED. PATIENT DENIES PAIN. BLOOD GLUCOSE WAS 105.
[2020-10-20 20:41] LABS: Glucose Point of Care 105 mg/dL (70-110)
== END 2020-10-20 20:35 | disposition home or self-care (01) | DRG 438 ==
LOC: ER 03:11 → MEDSURG 03:54 → ICU 04:11
PROVIDERS: Admitting Provider Internal Medicine; Emergency Provider Emergency Medicine; Visit Provider Internal Medicine
DX: K85.90 Acute pancreatitis without necrosis or infection, unspecified (principal); J18.9 Pneumonia, unspecified organism; E87.1 Hypo-osmolality and hyponatremia; F10.10 Alcohol abuse, uncomplicated; E78.1 Pure hyperglyceridemia; F17.210 Nicotine dependence, cigarettes, uncomplicated; K82.4 Cholesterolosis of gallbladder
CPT/HCPCS: 12345; 36415; 36416; 71045; 74177; 74181; 76705; 80053; 80061; 80306; 80307; 81003; 82962; 83036; 83605; 83690; 83721; 83735; 84478; 85025; 85610; 86140; 87040; 87426; 96375; 99283; G0378; J1170; J1815; J1885; J2405; J2543; J3411; J7030; J7050; Q9967

== ENCOUNTER → 2021-07-26 10:33 | Outpatient (BNVA) | payer BC, SELFPAY | PROVIDERS: Visit Provider Nurse Practitioner Family | DX: Z20.822 Contact with and (suspected) exposure to COVID-19 (principal); J06.9 Acute upper respiratory infection, unspecified | CPT/HCPCS: 87635 ==